=== PATIENT | female | born 1980 | race Caucasian/White ===

== ENCOUNTER 2016-10-19 11:27 | Inpatient (IN) | payer BC, OTHER ==
[~2016-10-19] VITALS: Ht 170.2 cm; Wt 63.0 kg
[2016-10-19 13:00] VITALS: BP 117/92
--- NOTE | 2016-10-19 13:00 | NUR ---
Pre-admission note; Patient is AOX4, appears to be anxious with flushed face. Admitting vital signs are as follows; BP 117/92, HR 110, Temperature 98.3, respirations 18, Spo2 96%, denies any pain. Educated patient regarding unit protocols, verbalized understanding. Will further evaluate patient on 3rd floor [facility] unit.
[2016-10-19] MEDS ORDERED: CETI-102 PO (13:14)
[2016-10-19 13:26] LABS: *URINE HCG, QUAL NEGATIVE (NEGATIVE)
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
[2016-10-19 13:44] LABS: *AMPHETAMINE, URINE NEGATIVE (NEGATIVE); *BARBITURATE, URINE NEGATIVE (NEGATIVE); *CANNABINOID, URINE NEGATIVE (NEGATIVE); *COCCAINE, URINE NEGATIVE (NEGATIVE); *OPIATE, URINE NEGATIVE (NEGATIVE); *PHENCYCLIDINE SCREEN,URINE NEGATIVE (NEGATIVE)
[2016-10-19] MEDS ORDERED: ESCI10TA PO (15:07)
[2016-10-19] MEDS ORDERED: LOPERAMIDE HCL 2 MG CAPSULE PO PRN ×2 (15:30)
[2016-10-19] MEDS ORDERED: MIRALAX 17 GM POWD.PACK PO PRN (15:30)
[2016-10-19] MEDS ORDERED: LORAZEPAM 2 MG/1 ML VIAL IM PRN (15:30)
[2016-10-19] MEDS ORDERED: THIAMINE HCL 200 MG/2 ML VIAL IM ONE (15:30)
[2016-10-19] MEDS ORDERED: DICYCLOMINE HCL 20 MG TABLET PO PRN (15:30)
[2016-10-19] MEDS ORDERED: MAGNESIUM HYDROXIDE 30 ML LIQUID UDC PO PRN (15:30)
[2016-10-19] MEDS ORDERED: MAG HYDROX/AL HYDROX/SIMETH 30 ML LIQUID UDC PO PRN (15:30)
[2016-10-19] MEDS ORDERED: LORAZEPAM 1 MG TABLET PO PRN ×2 (15:30)
[2016-10-19] MEDS: ONDANSETRON ODT 4 MG TAB.RAPDIS SL PRN (16:16)
--- NOTE | 2016-10-19 16:16 | NUR ---
PRN Zofran 4mg SL Client reports nausea, no episodes of emesis. Zofran 4mg SL administered. Saltine crackers and livia karan given to client, will continue to monitor. Call light within reach.
[2016-10-19] MEDS: LORAZEPAM 1 MG TABLET PO SCH ×2 (16:17→20:23)
[2016-10-19 16:26] VITALS: BP 134/71
--- NOTE | 2016-10-19 17:16 | NUR ---
Re-assessment; Patient denies further nausea noted. PRN medication is effective.
--- NOTE | 2016-10-19 18:22 | NUR ---
End of shift note; Patient is AOX4. Patient was seen and evaluated by MD. MD ordered 5 day Ativan taper to start with 2 doses of Ativan at 1700 and 2100. Order medication was given to prevent withdrawal induced seizures and for CIWA score of 11. Patient was compliant with treatment plan and medication regime. Medications were effective in reducing withdrawal symptoms. Patient is on fall and seizure precautions. Bed in lwoest position, call light within reach. Met all needs.
--- NOTE | 2016-10-19 19:15 | NUR ---
Start of Shift Patient Received. Patient is in bed awake, alert and verbally responsive. Breathing even and non labored. No signs of pain or discomfort noted. Patient is a 35 year old female admitted 10/19/16 for ETOH and Benzo Dependence, under the care of Dr. De Jesus. Patient is currently receiving a 5 day Ativan taper. Patient verbalizes allergies to strawberries, wishes to be full code, following a regular diet, skin intact, placed on fall and seizure precautions. Patient verbalized past medical history of Thyroidectomy, breast augmentation, , Anxiety, and Depression, and history of seizures with last one noted in Feb 2016. Patient was given first dose of Ativan at 1700 and last CIWA noted at 1600 noted to be 11. All needs attended to promptly. Will continue plan of care as ordered.
[2016-10-19 20:19] VITALS: BP 127/79
[2016-10-19] MEDS: ESCITALOPRAM OXALATE 10 MG TABLET PO SCH (20:23)
[2016-10-19] MEDS: ONDANSETRON 4 MG/2 ML VIAL IM PRN (20:24)
--- NOTE | 2016-10-19 20:30 | NUR ---
PRN Medication Administration Patient verbalizing increased nausea. Patient verbalized "I know they gave me Zofran earlier but it continues." PRN Zofran IM administered with routine medications. Will continue to monitor for effectiveness of medication.
--- NOTE | 2016-10-19 21:40 | NUR ---
PRN Medication Reassessment Patient able to verbalize "the medication really helped." PRN Zofran IM noted to be effective. Will continue to monitor.
[2016-10-19 21:51] LABS: ALANINE AMINOTRANSFERASE 27 U/L (14-59); ALBUMIN 3.9 g/dL (3.4-5.0); ALKALINE PHOSPHATASE 68 U/L (50-136); AMYLASE 89 U/L (25-115); ASPARTATE AMINOTRANSFERASE 31 U/L (15-37); BILIRUBIN,TOTAL 1.9 mg/dL (0.2-1.0); CALCIUM 9.2 mg/dL (8.5-10.1); CHLORIDE 96 mmol/L (98-107); GFR 64 mL/min (>60); GLUCOSE 111 mg/dL (74-106); LIPASE 231 U/L (73-393); MAGNESIUM 1.9 mg/dL (1.8-2.4); SODIUM SERUM 137 mmol/L (136-145); TOTAL PROTEIN, SERUM 7.3 g/dL (6.4-8.2); UREA NITROGEN, BLOOD 21 mg/dL (7-18)
[2016-10-19 21:52] LABS: CARBON DIOXIDE 34 mmol/L (21-32)
[2016-10-19 21:57] LABS: BASOPHILS % (AUTO) 0.1 % (0.0-2.0); EOSINOPHILS # (AUTO) 0.1 K/uL (0.0-0.7); EOSINOPHILS % (AUTO) 1.1 % (0.0-7.0); HEMATOCRIT 45.4 % (31.2-41.9); HEMOGLOBIN 15.9 g/dL (10.9-14.3); LYMPHOCYTES # (AUTO) 3.7 K/uL (20.0-40.0); MEAN CORPUSCULAR HEMOGLOBIN 32.2 uug (24.7-32.8); MEAN CORPUSCULAR HGB CONC 35 g/dL (32.3-35.6); MEAN CORPUSCULAR VOLUME 91.6 fL (75.5-95.3); MONOCYTES # (AUTO) 0.6 K/uL (2.0-10.0); MONOCYTES % (AUTO) 5.7 % (0.0-11.0); NEUTROPHILS # (AUTO) 5.8 K/uL (1.8-8.9); NEUTROPHILS % (AUTO) 57.1 % (38.5-71.5); PLATELET COUNT (AUTO) 156 K/uL (179-408); RED BLOOD CELL COUNT(AUTO) 4.95 MIL/uL (3.63-4.92); WHITE BLOOD COUNT (AUTO) 10.3 K/uL (3.8-11.8)
[2016-10-19 22:00] LABS: THYROID STIMULATING HORMONE 4.784 mIU/mL (0.358-3.740)
[2016-10-19 22:07] LABS: HIV-1 p24 ANTIGEN NON REACTIVE (NONREACTIVE); HIV-1/2 ANTIBODY NON REACTIVE (NONREACTIVE)
[2016-10-19 22:13] LABS: ETHANOL < 3 MG/DL (0-0)
[2016-10-19] MEDS ORDERED: POTASSIUM CHLORIDE 20 MEQ TAB.PRT.SR PO ONE (22:15)
[2016-10-19 22:23] VITALS: BP 103/89
[2016-10-19] MEDS ORDERED: POTASSIUM CHLORIDE 20 MEQ TAB.PRT.SR ONE (22:27)
[2016-10-20 00:05] VITALS: BP 114/76
[2016-10-20 04:25] VITALS: BP 115/86
[2016-10-20] MEDS: ONDANSETRON ODT 4 MG TAB.RAPDIS SL PRN ×2 (04:30→08:32)
--- NOTE | 2016-10-20 04:35 | NUR ---
PRN medication Administration Patient noted awake for vitals and verbalizing increased nausea. PRN Zofran administered. Patient able to tolerate well. Will continue to monitor accordingly.
--- NOTE | 2016-10-20 07:00 | NUR ---
End of Shift Patient is in bed sleeping. Breathing even and non labored. No signs of pain or discomfort noted. Patient is a 35 year old female admitted 10/19/16 for ETOH and Benzo Dependence, under the care of Dr. De Jesus. Patient is currently receiving a 5 day Ativan taper. Patient verbalizes allergies to strawberries; wishes to be full code, following a regular diet, skin intact, placed on fall and seizure precautions. Patient verbalized past medical history of Thyroidectomy, breast augmentation, , Anxiety, and Depression, and history of seizures with last one noted in feb 2016. Patient was given PRN Zofran IM as well as PRN Zofran sublingual. Both medications administrations noted to be effective. All needs attended to promptly. Will continue plan of care as ordered.
--- NOTE | 2016-10-20 07:46 | NUR ---
Start of shift note; Received report from night nurse. Patient is AOX4. Patient is a 35 y/o female admitted on 10/19/16 for ETOH/Benzo dependence. Patient was placed on 5 day Ativan taper, no adverse reactions noted. Patient is on fall and seizure precaution. Bed in lowest position, call light within reach. Patient reported history of thyroidectomy, breast augmentation, seizures, anxiety and depression. Patient is on full code status, on vegetarian diet, allergic to strawberry and has seasonal allergies. Patient slept for 8 hours last night. Patient had EKG done last night, results to be relayed to MD today, Will continue to monitor patient.
[2016-10-20 07:54] LABS: BASOPHILS % (AUTO) 0.2 % (0.0-2.0); EOSINOPHILS # (AUTO) 0.1 K/uL (0.0-0.7); EOSINOPHILS % (AUTO) 2.4 % (0.0-7.0); HEMATOCRIT 45.1 % (31.2-41.9); LYMPHOCYTES # (AUTO) 2.3 K/uL (20.0-40.0); LYMPHOCYTES % (AUTO) 41.1 % (20.5-51.5); MEAN CORPUSCULAR HEMOGLOBIN 32.5 uug (24.7-32.8); MEAN CORPUSCULAR HGB CONC 36 g/dL (32.3-35.6); MEAN CORPUSCULAR VOLUME 91.7 fL (75.5-95.3); MONOCYTES # (AUTO) 0.4 K/uL (2.0-10.0); MONOCYTES % (AUTO) 6.5 % (0.0-11.0); NEUTROPHILS # (AUTO) 2.7 K/uL (1.8-8.9); NEUTROPHILS % (AUTO) 49.8 % (38.5-71.5); PLATELET COUNT (AUTO) 136 K/uL (179-408); RED BLOOD CELL COUNT(AUTO) 4.93 MIL/uL (3.63-4.92); RED CELL DISTRIBUTION WIDTH 12.8 % (12.3-17.7); WHITE BLOOD COUNT (AUTO) 5.5 K/uL (3.8-11.8)
[2016-10-20 08:00] VITALS: BP 110/68
[2016-10-20 08:08] LABS: ALBUMIN 3.7 g/dL (3.4-5.0); BILIRUBIN,DIRECT 0.3 mg/dL (0.0-0.2); BILIRUBIN,TOTAL 2.7 mg/dL (0.2-1.0); CALCIUM 8.9 mg/dL (8.5-10.1); CREATININE 0.9 mg/dL (0.6-1.3); PHOSPHOROUS 3.6 mg/dL (2.5-4.9); POTASSIUM 3.3 mmol/L (3.5-5.1)
[2016-10-20] MEDS: LORAZEPAM 1 MG TABLET PO SCH ×4 (08:31→20:03)
[2016-10-20] MEDS: MULTIVITAMINS,THERAPEUTIC TABLET PO SCH (08:32)
[2016-10-20] MEDS: THIAMINE HCL 100 MG TABLET PO SCH (08:32)
[2016-10-20] MEDS: FOLIC ACID 1 MG TABLET PO SCH (08:32)
--- NOTE | 2016-10-20 08:32 | NUR ---
PRN medication; Patient is complaining of nausea, no emesis noted. Zofran 4mg Odt given for nausea. Will continue to monitor for effectiveness of medication.
[2016-10-20] MEDS ORDERED: PATIENT MAY USE OWN MED- MD OK PO SCH (09:00)
[2016-10-20] MEDS ORDERED: TUBERCULIN,PURIF.PROT.DERIV. 5 TU/0.1 ML TEST ID ONE (09:00)
--- NOTE | 2016-10-20 09:32 | NUR ---
Re-assessment; Patient denies nausea at this time. PRN Zofran is effective.
[2016-10-20] MEDS ORDERED: POTASSIUM CHLORIDE 20 MEQ TAB.PRT.SR PO ONE (10:00)
--- NOTE | 2016-10-20 10:00 | NUR ---
New Order; reviewed patient's new LAB results, MD ordered K-DUR 40meq PO one time order. Medication given to patient as ordered. MD also notified of patient's EKG results, no other orders noted. will continue to monitor patient.
[2016-10-20 12:00] VITALS: BP 110/73
[2016-10-20] MEDS: ONDANSETRON 4 MG/2 ML VIAL IM PRN (12:06)
--- NOTE | 2016-10-20 12:06 | NUR ---
PRN medication; Patient is complaining of nausea, no emesis noted. Zofran 4mg/2ml injection given for nausea. Will continue to monitor for effectiveness of medication.
[2016-10-20] MEDS ORDERED: PANTOPRAZOLE SODIUM 40 MG TABLET.DR PO ONE (12:15)
--- NOTE | 2016-10-20 13:06 | NUR ---
Re-assessment; Patient denies nausea at this time. PRN Zofran injection is effective.
[2016-10-20 16:00] VITALS: BP 115/75
[2016-10-20] MEDS: ACETAMINOPHEN 325 MG TABLET PO PRN (16:58)
--- NOTE | 2016-10-20 16:58 | NUR ---
PRN medication; Patient is complaining of pain/headache rated 6/10. PRN Tylenol 650mg given for pain. Will continue to monitor patient.
--- NOTE | 2016-10-20 17:58 | NUR ---
Re-assessment; Patient denies pain at this time. PRN medication is effective.
--- NOTE | 2016-10-20 18:14 | NUR ---
End of shift note; Patient is AOX4. Patient was placed on 5 day Ativan taper started today no adverse reactions noted. Patient was compliant with treatment plan and medication regime. Medications were effective in reducing withdrawal symptoms. Patient is on fall and seizure precautions. Bed in lowest position, call light within reach. Met all needs.
--- NOTE | 2016-10-20 19:20 | NUR ---
Start of Shift Patient Received. Patient is in activities room participating in group meeting. Patient is a 35 year old female admitted 10/19/16 for ETOH and Benzo Dependence, under the care of Dr. De Jesus. Patient is currently receiving a 5 day Ativan taper. Patient verbalizes allergies to strawberries, wishes to be full code, following a regular diet, skin intact, placed on fall and seizure precautions. Patient verbalized past medical history of Thyroidectomy, breast augmentation, , Anxiety, and Depression, and history of seizures with last one noted in Feb 2016. Per endorsement, patient was given PRN Zofran sublingual, Zofran IM, and Tylenol. Labs rendered, resulted, and potassium was supplemented. New order for Protonix 40mg daily at 0700. At 1700 and last CIWA noted was 7. All needs attended to promptly. Will continue plan of care as ordered.
[2016-10-20 20:00] VITALS: BP 133/77
[2016-10-20] MEDS: ESCITALOPRAM OXALATE 10 MG TABLET PO SCH (20:03)
--- NOTE | 2016-10-20 21:30 | NUR ---
MD Communication/ PRN Medication Administration Patient verbalizing inability of falling asleep with MD aware. New order for Benadryl 50mg. PRN Benadryl administered. Will continue to monitor.
[2016-10-20] MEDS: diphenhydrAMINE 50 MG CAPSULE PO PRN (21:35)
[2016-10-20] MEDS ORDERED: diphenhydrAMINE 50 MG CAPSULE ONE (21:44)
[2016-10-20] MEDS: IBUPROFEN 400 MG TABLET PO PRN (22:38)
--- NOTE | 2016-10-20 22:38 | NUR ---
PRN Medication Administration Patient noted at the nurses station verbalizing pain due to a head ache 10/30. PRN Motrin administered. Patient able to verbalize "I was falling asleep but then my head was just bothering me. I should be able to fall asleep now." Will continue to monitor.
[2016-10-21] VITALS (7 sets, daily range): BP systolic 95–130; BP diastolic 58–88
[2016-10-21] MEDS: PANTOPRAZOLE SODIUM 40 MG TABLET.DR PO SCH (06:44)
--- NOTE | 2016-10-21 07:05 | NUR ---
End of Shift Patient is in bed sleeping. Breathing even and non labored. No signs of pain or discomfort noted. Patient is a 35 year old female admitted 10/19/16 for ETOH and Benzo Dependence, under the care of Dr. De Jesus. Patient is currently receiving a 5 day Ativan taper. Patient verbalizes allergies to strawberries; full code, regular diet, skin intact, placed on fall and seizure precautions. Patient verbalized past medical history of Thyroidectomy, breast augmentation, , Anxiety, and Depression, and history of seizures with last one noted in feb 2016. Patient was given PRN Benadryl and Motrin with both noted to be effective. Patient slept a total of 6 hours. All needs attended to promptly. Will endorse to continue plan of care as ordered.
--- NOTE | 2016-10-21 07:43 | NUR ---
BEGINNING OF SHIFT Patient endorsement report received from warehouse shift supervisor nurse, all pertinent information discussed. Patient with admitting Dx: ETOH Dependence Patient continues on ativan taper as ordered and is to begin day 3 of . Patient slept for 6 hours, with last ciwa score of: 0 Patient received PRN: benadryl and motrin as per warehouse shift supervisor, medications were effective. Fall and seizure precautions observed at all times. Patient received awake, alert and oriented x4, educated regarding plan of care for the day with good verbal understanding. will continue to monitor closely. safety measures in place. call light with in reach.
[2016-10-21 08:05] LABS: THYROID STIMULATING HORMONE 1.87 mIU/mL (0.358-3.740)
[2016-10-21 08:06] LABS: BASOPHILS % (AUTO) 0.2 % (0.0-2.0); EOSINOPHILS # (AUTO) 0.4 K/uL (0.0-0.7); EOSINOPHILS % (AUTO) 4.2 % (0.0-7.0); HEMATOCRIT 44.2 % (31.2-41.9); HEMOGLOBIN 15.3 g/dL (10.9-14.3); LYMPHOCYTES % (AUTO) 22.7 % (20.5-51.5); MEAN CORPUSCULAR HEMOGLOBIN 32.1 uug (24.7-32.8); MEAN CORPUSCULAR HGB CONC 35 g/dL (32.3-35.6); MEAN CORPUSCULAR VOLUME 92.8 fL (75.5-95.3); MONOCYTES # (AUTO) 0.3 K/uL (2.0-10.0); NEUTROPHILS # (AUTO) 6.2 K/uL (1.8-8.9); NEUTROPHILS % (AUTO) 69.9 % (38.5-71.5); PLATELET COUNT (AUTO) 132 K/uL (179-408); RED BLOOD CELL COUNT(AUTO) 4.76 MIL/uL (3.63-4.92); RED CELL DISTRIBUTION WIDTH 12.8 % (12.3-17.7); WHITE BLOOD COUNT (AUTO) 8.9 K/uL (3.8-11.8)
[2016-10-21 08:48] LABS: ALBUMIN 3.5 g/dL (3.4-5.0); BILIRUBIN,DIRECT 0.2 mg/dL (0.0-0.2); BILIRUBIN,TOTAL 1.1 mg/dL (0.2-1.0); CREATININE 0.8 mg/dL (0.6-1.3); MAGNESIUM 1.9 mg/dL (1.8-2.4); PHOSPHOROUS 4.6 mg/dL (2.5-4.9); POTASSIUM 3.6 mmol/L (3.5-5.1); TOTAL PROTEIN, SERUM 6.8 g/dL (6.4-8.2)
[2016-10-21] MEDS: LORAZEPAM 1 MG TABLET PO SCH ×3 (09:09→21:05)
[2016-10-21] MEDS: CETIRIZINE HCL 10 MG TABLET PO SCH (09:09)
[2016-10-21] MEDS: THIAMINE HCL 100 MG TABLET PO SCH (09:09)
[2016-10-21] MEDS: MULTIVITAMINS,THERAPEUTIC TABLET PO SCH (09:09)
[2016-10-21] MEDS: FOLIC ACID 1 MG TABLET PO SCH (09:09)
[2016-10-21] MEDS: ONDANSETRON ODT 4 MG TAB.RAPDIS SL PRN ×2 (09:12→16:26)
[2016-10-21] MEDS: IBUPROFEN 400 MG TABLET PO PRN ×3 (09:12→21:04)
--- NOTE | 2016-10-21 09:12 | NUR ---
PRN MOTRIN/ZOFRAN Patient reports menstrual cramps 6/10 and c/o nausea. Patient administered Motrin as ordered and Zofran as ordered, will monitor effectiveness of medication.
[2016-10-21 10:02] LABS: FOLIC ACID 9.9 NG/ML (8.6-58.9)
--- NOTE | 2016-10-21 10:12 | NUR ---
MOTRIN/ZOFRAN REASSESSMENT Patient reports medication with relief, current pain level 0/10. no c/o nausea, medication effective, will continue to monitor closely. safety measures in place.
--- NOTE | 2016-10-21 10:42 | NUR ---
MD COMMUNICATION Patient was administered Zofran at 0912, patient reported was effective one hour post administration. at 1100 patient reported she began to feel nauseous again and vomited x1, notified Dr. arana with new orders for one time order for Phenergan injection as ordered, for NV will administer as ordered.
[2016-10-21] MEDS ORDERED: PROMETHAZINE HCL 25 MG/1 ML VIAL IM ONE (11:00)
--- NOTE | 2016-10-21 11:08 | NUR ---
PHENERGAN INJECTION PRN Patient administered one time dose of Phenergan as ordered for NV. injection well tolerated, will monitor effectiveness of medication.
--- NOTE | 2016-10-21 12:08 | NUR ---
PHENERGAN REASSESSMENT Patient reports medication with relief, no episodes of NV will continue ot monitor.
--- NOTE | 2016-10-21 16:26 | NUR ---
PRN MOTRIN/ZOFRAN Patient reports menstrual cramps 6/10 and c/o nausea. Patient administered Motrin as ordered and Zofran as ordered, will monitor effectiveness of medication.
--- NOTE | 2016-10-21 17:26 | NUR ---
MOTRIN/ZOFRAN REASSESSMENT Patient reports medication with relief, current pain level 0/10. no c/o nausea, medication effective, will continue to monitor closely. safety measures in place.
--- NOTE | 2016-10-21 18:58 | NUR ---
END OF SHIFT Patient with admitting Dx: ETOH Dependance and continues on 5 day Ativan taper as ordered, well tolerated, no ASE noted, Patient encouraged adequate PO fluid intake as tolerated. 0900 patient presented with Nausea, fine tremors, sweats, anxiety and mild agitation with ciwa score of: 12. 1300 assessment patient presented with: fine tremors, sweats, anxiety, mild agitation with ciwa score of: 12. . 1700 assessment patient presented with:nausea, barely sweating, fine tremors, and anxiety with ciwa score of: 11. Detox medication effective at reducing withdrawal symptoms. Patient encouraged to attend group therapies/sessions to learn new coping skills to prevent relapse, noted attending and participating. patient denies SI/HI. Administered PRN: Motrin and Zofran at 0912 and a second dose at 1626 as ordered and Phenergan at at 1108, medications were effective. Safety measures in place. call light kept with in reach. Patient endorsed to operation shift supervisor nurse, all pertinent information discussed.
--- NOTE | 2016-10-21 20:40 | NUR ---
START OF SHIFT NOTE Pt is a 35 y/o female admitted for ETOH and Xanax dependence and use. Pt has an allergy to strawberries and also reported having seasonal allergies. Pt has a PMH of thyroidectomy, breast augmentation, , anxiety, and depression. Per day shift nurse pt was placed on 5 day Ativan taper(day 3) and is tolerating medication well with no s/e or a/r reported. Pt received Zofran 4mg ODT PRN x 2, Motrin 400 mg PO PRN x 2, and Phenergan IM x1 during the day shift. Last CIWA: 11 (1600). At this time pt has just returned to her room from showering. Pt stated " I'm doing good. I'm on my menstrual so I'm having some cramps. Can I have some Motrin with my meds?" Pt is encouraged to notify staff of any changes in condition or of any concerns. Pt verbalized an understanding. All safety measures in place. Will continue to monitor.
[2016-10-21] MEDS: ESCITALOPRAM OXALATE 10 MG TABLET PO SCH (21:04)
[2016-10-21] MEDS: diphenhydrAMINE 50 MG CAPSULE PO PRN (21:10)
--- NOTE | 2016-10-21 21:10 | NUR ---
BENADRYL AND MOTRIN REASSESSMENT Pt stated " Can I have some Motrin for my cramps and some Benadryl to help me sleep? My cramps are like a 3/10 or less. Right now it's just pressure. That shower I took really helped." Motrin 400 mg PO PRN and Benadryl 50 mg PO PRN was given. Pt was encouraged to notify staff of any changes in condition or of any further concerns. Pt verbalized an understanding. All safety measures in place. Will monitor for effectiveness.
--- NOTE | 2016-10-21 23:02 | NUR ---
BENADRYL AND MOTRIN PRN REASSESSMENT Pt approached the nurse's station and stated " My cramps are gone. The Motrin worked. I'm super sleepy. I'm just gonna grab some water and head to bed." Benadryl and Motrin PRNS effective. Pt was encouraged to notify staff of any changes in condition or of any concerns. Pt verbalized an understanding. Will continue to monitor.
[2016-10-22] VITALS: BP 132/93
[2016-10-22] MEDS: HYDROXYZINE PAMOATE 25 MG CAPSULE PO PRN (00:56)
--- NOTE | 2016-10-22 00:56 | NUR ---
VISTARIL PRN ADMINISTRATION Pt stated " I'm feeling anxious. I just can't relax. " Vistaril 25 mg PO PRN was given. Pt was encouraged to notify staff of any changes in condition or of any further concerns. Pt verbalized an understanding. All safety measures in place. Will monitor for effectiveness.
--- NOTE | 2016-10-22 01:56 | NUR ---
VISTARIL PRN REASSESSMENT Pt stated " I feel more relaxed." PRN effective. All safety measures in place. Will continue to monitor.
--- NOTE | 2016-10-22 04:00 | NUR ---
CIWA AND VITALS REFUSED Pt refused to be assessed and have vitals taken at this time. Pt was encouraged x 3 with risks and benefits explained, but the pt still refused. All safety measures in place. Will continue to monitor. Addendum: 10/22/16 at 0656 by PATRICIA DISLA LVN Amended: Links added.
[2016-10-22 04:06] LABS: HCV AB <0.1 s/co ratio (0.0-0.9); HEPATITIS B CORE AB, IgM Negative (Negative); HEPATITIS B SURFACE AG Negative (Negative)
--- NOTE | 2016-10-22 06:59 | NUR ---
END OF SHIFT NOTE Pt is a 35 y/o female admitted for ETOH and Xanax dependence and use. Pt has an allergy to strawberries and also reported having seasonal allergies. Pt has a PMH of thyroidectomy, breast augmentation, , anxiety, and depression. Pt continues on a 5 day Ativan taper(day 4) and is tolerating medication well with no s/e or a/r reported. Pt received Motrin 400 mg PO PRN, Benadryl 50 mg PO PRN, and Vistaril 50 mg PO PRN during the shift. Last CIWA:3 (0000). Pt slept for a total of 5 hours. All safety measures in place. Endorsed to the oncoming nurse.
[2016-10-22 07:19] LABS: BASOPHILS % (AUTO) 0.1 % (0.0-2.0); EOSINOPHILS # (AUTO) 0.5 K/uL (0.0-0.7); EOSINOPHILS % (AUTO) 4.1 % (0.0-7.0); HEMATOCRIT 41.5 % (31.2-41.9); HEMOGLOBIN 14.7 g/dL (10.9-14.3); LYMPHOCYTES # (AUTO) 2.5 K/uL (20.0-40.0); LYMPHOCYTES % (AUTO) 19.7 % (20.5-51.5); MEAN CORPUSCULAR HGB CONC 35 g/dL (32.3-35.6); MEAN CORPUSCULAR VOLUME 93.6 fL (75.5-95.3); MONOCYTES # (AUTO) 0.5 K/uL (2.0-10.0); MONOCYTES % (AUTO) 4.1 % (0.0-11.0); NEUTROPHILS # (AUTO) 8.9 K/uL (1.8-8.9); PLATELET COUNT (AUTO) 126 K/uL (179-408); RED BLOOD CELL COUNT(AUTO) 4.44 MIL/uL (3.63-4.92); RED CELL DISTRIBUTION WIDTH 12.8 % (12.3-17.7); WHITE BLOOD COUNT (AUTO) 12.4 K/uL (3.8-11.8)
[2016-10-22 07:41] LABS: CALCIUM 9.2 mg/dL (8.5-10.1); CREATININE 0.7 mg/dL (0.6-1.3); POTASSIUM 4.1 mmol/L (3.5-5.1)
[2016-10-22] MEDS: PANTOPRAZOLE SODIUM 40 MG TABLET.DR PO SCH (07:46)
--- NOTE | 2016-10-22 08:06 | NUR ---
BEGINNING OF SHIFT Patient endorsement report received from shift superintendent nurse, all pertinent information discussed. Patient with admitting Dx: ETOH Dependence Patient continues on Ativan taper as ordered and is to begin day 4 of . Patient slept for 5 hours, with last ciwa score of: 3 Patient received PRN: Vistaril, Benadryl and Motrin as per shift superintendent, medications were effective. Fall and seizure precautions observed at all times. Patient received awake, alert and oriented x4, educated regarding plan of care for the day with good verbal understanding. will continue to monitor closely. safety measures in place. call light with in reach.
[2016-10-22 08:40] VITALS: BP 111/68
[2016-10-22] MEDS: FOLIC ACID 1 MG TABLET PO SCH (08:41)
[2016-10-22] MEDS: CETIRIZINE HCL 10 MG TABLET PO SCH (08:41)
[2016-10-22] MEDS: MULTIVITAMINS,THERAPEUTIC TABLET PO SCH (08:41)
[2016-10-22] MEDS: THIAMINE HCL 100 MG TABLET PO SCH (08:41)
[2016-10-22] MEDS: LORAZEPAM 1 MG TABLET PO SCH ×4 (08:41→21:39)
[2016-10-22 12:15] VITALS: BP 129/86
[2016-10-22 17:00] VITALS: BP 138/97
[2016-10-22] MEDS ORDERED: GABAPENTIN 300 MG CAPSULE PO ONE (17:00)
--- NOTE | 2016-10-22 19:05 | NUR ---
END OF SHIFT Patient with admitting Dx: ETOH Dependance and continues on 5 day Ativan taper as ordered, well tolerated, no ASE noted, Patient encouraged adequate PO fluid intake as tolerated. 0900 patient presented with tremors that can be felt and anxiety with ciwa score of: 3.1300 assessment patient presented with mild anxiety and tremors that can be felt. 1700 assessment patient presented with: tremors that can be felt and anxiety with ciwa score of: 3; . Detox medication effective at reducing withdrawal symptoms. Patient encouraged to attend group therapies/sessions to learn new coping skills to prevent relapse, noted attending and participating. patient denies SI/HI. Administered no PRNs during shift. Safety measures in place. call light kept with in reach. Patient endorsed to shift nurse manager nurse, all pertinent information discussed.
[2016-10-22 20:00] VITALS: BP 135/94
--- NOTE | 2016-10-22 20:00 | NUR ---
START OF SHIFT NOTE Pt is a 35 y/o female admitted for ETOH and Xanax dependence and use. Pt has an allergy to strawberries and also reported having seasonal allergies. Pt has a PMH of thyroidectomy, breast augmentation, , anxiety, and depression. Per day shift nurse pt continues on a 5 day Ativan taper(day 4) and is tolerating medication well with no s/e or a/r reported. Pt didn't receive any PRNS during the day shift. Last CIWA: 2 (1600). At this time pt is standing by the nurse's station. Pt stated " I'm doing okay, it's just been an emotional day for me." Pt denies any pain/discomfort at this time. Pt is encouraged to notify staff of any changes in condition or of any concerns. Pt verbalized an understanding. Will continue to monitor.
[2016-10-22] MEDS: CLONIDINE HCL 0.1 MG TABLET PO SCH (21:38)
[2016-10-22] MEDS: GABAPENTIN 300 MG CAPSULE PO SCH (21:40)
[2016-10-22] MEDS: ESCITALOPRAM OXALATE 10 MG TABLET PO SCH (21:40)
[2016-10-23] VITALS: BP 138/89
[2016-10-23] MEDS: diphenhydrAMINE 50 MG CAPSULE PO PRN (01:10)
--- NOTE | 2016-10-23 01:12 | NUR ---
BENADRYL PRN ADMINISTRATION Pt stated " Can I have some Benadryl to help me sleep?" Benadryl 50 mg PO PRN was given. Pt was encouraged to notify staff of any changes in condition or of any further concerns. Pt verbalized an understanding. All safety measures in place. Will monitor for effectiveness.
--- NOTE | 2016-10-23 02:12 | NUR ---
AGUEDA PRN REASSESSMENT Pt stated "I'm actually just starting to doze off. I think its working." PRN effective. All safety measures in place. Will continue to monitor.
--- NOTE | 2016-10-23 04:00 | NUR ---
CIWA AND VITALS REFUSED Pt refused to be assessed and have vitals taken at this time. Pt was encouraged x 3 with risks and benefits explained, but the pt still declined. All safety measures in place. Will continue to monitor. Addendum: 10/23/16 at 0440 by PATRICIA DISLA LVN Amended: Links added.
--- NOTE | 2016-10-23 07:02 | NUR ---
END OF SHIFT NOTE Pt is a 35 y/o female admitted for ETOH and Xanax dependence and use. Pt has an allergy to strawberries and also reported having seasonal allergies. Pt has a PMH of thyroidectomy, breast augmentation, , anxiety, and depression. Pt continues on a 5 day Ativan taper(day 4) and is tolerating medication well with no s/e or a/r reported. Pt received Benadryl 50 mg PO PRN during the shift. Last CIWA:2 (0000). Pt slept for a total of 5 hours. All safety measures in place. Endorsed to the oncoming nurse.
[2016-10-23] MEDS: PANTOPRAZOLE SODIUM 40 MG TABLET.DR PO SCH (07:15)
[2016-10-23 07:50] LABS: BASOPHILS % (AUTO) 0.5 % (0.0-2.0); EOSINOPHILS # (AUTO) 0.4 K/uL (0.0-0.7); EOSINOPHILS % (AUTO) 4.9 % (0.0-7.0); HEMATOCRIT 41.9 % (31.2-41.9); HEMOGLOBIN 14.4 g/dL (10.9-14.3); LYMPHOCYTES # (AUTO) 2.5 K/uL (20.0-40.0); LYMPHOCYTES % (AUTO) 32.3 % (20.5-51.5); MEAN CORPUSCULAR HEMOGLOBIN 32.2 uug (24.7-32.8); MEAN CORPUSCULAR HGB CONC 34 g/dL (32.3-35.6); MEAN CORPUSCULAR VOLUME 93.5 fL (75.5-95.3); MONOCYTES # (AUTO) 0.4 K/uL (2.0-10.0); MONOCYTES % (AUTO) 5.7 % (0.0-11.0); NEUTROPHILS # (AUTO) 4.3 K/uL (1.8-8.9); NEUTROPHILS % (AUTO) 56.6 % (38.5-71.5); PLATELET COUNT (AUTO) 133 K/uL (179-408); RED BLOOD CELL COUNT(AUTO) 4.48 MIL/uL (3.63-4.92); RED CELL DISTRIBUTION WIDTH 12.9 % (12.3-17.7); WHITE BLOOD COUNT (AUTO) 7.6 K/uL (3.8-11.8)
[2016-10-23 08:00] VITALS: BP 125/76
[2016-10-23] MEDS: GABAPENTIN 300 MG CAPSULE PO SCH ×3 (08:27→20:03)
[2016-10-23] MEDS: CHOLECALCIFEROL 1,000 UNIT TABLET PO SCH (08:27)
[2016-10-23] MEDS: LORAZEPAM 1 MG TABLET PO SCH ×3 (08:27→20:04)
[2016-10-23] MEDS: CETIRIZINE HCL 10 MG TABLET PO SCH (08:27)
[2016-10-23] MEDS: FOLIC ACID 1 MG TABLET PO SCH (08:27)
[2016-10-23] MEDS: THIAMINE HCL 100 MG TABLET PO SCH (08:27)
[2016-10-23] MEDS: CLONIDINE HCL 0.1 MG TABLET PO PRN (08:27)
[2016-10-23] MEDS: MULTIVITAMINS,THERAPEUTIC TABLET PO SCH (08:27)
--- NOTE | 2016-10-23 08:27 | NUR ---
PRN medication; Patient appears agitated and anxious complaining of chills of diaphoresis, PRN Clonidine 0.1mg PO given as per ordered. Patient's current BP is 125/76 with HR of 110. Redirected patient as needed. Will continue to monitor patient.
--- NOTE | 2016-10-23 09:27 | NUR ---
Re-assessment; Patient appears calm and comfortable. Patient's current BP is 110/72 and HR of 96. PRN medication is effective.
--- NOTE | 2016-10-23 09:39 | NUR ---
Start of shift note; Received report from night nurse. Patient is AOX4. Patient is a 35 y/o female admitted on 10/19/16 for ETOH/Benzo dependence. Patient was placed on 5 day Ativan taper, no adverse reactions noted. Patient is on fall and seizure precaution. Bed in lowest position, call light within reach. Patient reported history of thyroidectomy, breast augmentation, seizures, anxiety and depression. Patient is on full code status, on vegetarian diet, allergic to strawberry and has seasonal allergies. Patient appears anxious and agitated at this time. Will continue to monitor patient.
[2016-10-23 10:40] LABS: ALBUMIN 3.7 g/dL (3.4-5.0); BILIRUBIN,DIRECT 0.2 mg/dL (0.0-0.2); BILIRUBIN,TOTAL 0.8 mg/dL (0.2-1.0); CALCIUM 9.2 mg/dL (8.5-10.1); CREATININE 0.7 mg/dL (0.6-1.3); MAGNESIUM 1.9 mg/dL (1.8-2.4); POTASSIUM 3.7 mmol/L (3.5-5.1); TOTAL PROTEIN, SERUM 7.1 g/dL (6.4-8.2)
[2016-10-23] MEDS: HYDROXYZINE PAMOATE 25 MG CAPSULE PO PRN (11:36)
--- NOTE | 2016-10-23 11:39 | NUR ---
PRN medication; Patient attended group therapy, during group therapy and discussion, past experiences triggered patient's anxiety. Patient is crying, very anxious, redirected as needed. Non-pharmacological relaxation techniques observed but was ineffective. PRN Vistaril 25mg PO given for anxiety. Will cotninue to monitor for effectiveness of medication.
[2016-10-23 12:00] VITALS: BP 120/82
--- NOTE | 2016-10-23 12:39 | NUR ---
Re-assessment; Patient is calm and comfortable at this time. PRN medication is effective.
[2016-10-23 16:00] VITALS: BP 134/86
--- NOTE | 2016-10-23 18:35 | NUR ---
End of shift note; Patient is AOX4. Patient was placed on 5 day Ativan taper, no adverse reactions noted. Patient was compliant with treatment plan and medication regime. Medications were effective in reducing withdrawal symptoms. Patient is on fall and seizure precautions. Bed in lowest position, call light within reach. Met all needs.
--- NOTE | 2016-10-23 19:25 | NUR ---
START OF SHIFT NOTE Pt is a 35 y/o female admitted for ETOH and Xanax dependence and use. Pt has an allergy to strawberries and also reported having seasonal allergies. Pt has a PMH of thyroidectomy, breast augmentation, , anxiety, and depression. Per day shift nurse pt continues on a 5 day Ativan taper(day 5) and is tolerating medication well with no s/e or a/r reported. Pt received Vistaril 25 mg PO PRN and Clonidine 0.1 mg PO PRN during the day shift. Last CIWA: 4(1600). At this time pt is in the hallway Pt stated "I'm doing good today. I was a little more active. We did yoga, and played the games downstairs." Pt denies any pain/discomfort at this time. Pt is encouraged to notify staff of any changes in condition or of any concerns. Pt verbalized an understanding. Will continue to monitor.
[2016-10-23 20:00] VITALS: BP 123/87
[2016-10-23] MEDS: CLONIDINE HCL 0.1 MG TABLET PO SCH (20:03)
[2016-10-23] MEDS: ESCITALOPRAM OXALATE 10 MG TABLET PO SCH (20:04)
[2016-10-23] MEDS ORDERED: LORAZEPAM 1 MG TABLET PO ONE (21:30)
[2016-10-23] MEDS ORDERED: PROPRANOLOL HCL 20 MG TABLET PO ONE (21:45)
--- NOTE | 2016-10-23 21:47 | NUR ---
ATIVAN AND INDERAL PRN ADMINISTRATION Pt was seen by and new order for Ativan 2 mg PO x 1 and Inderal 20 mg PO x 1 were given. Pt CIWA at this time is 13. Will monitor for effectiveness.
--- NOTE | 2016-10-23 22:47 | NUR ---
ATIVAN AND INDERAL PRN REASSESSMENT Pt stated " I feel so much better." CIWA is now a 2. PRNS effective. Will continue to monitor.
[2016-10-24] VITALS: BP 108/70
--- NOTE | 2016-10-24 04:00 | NUR ---
CIWA AND VITALS REFUSED Pt refused to be assessed and have vitals taken at this time. Pt was encouraged x 3 with risks and benefits explained, but the pt still declined. All safety measures in place. Will continue to monitor. Addendum: 10/24/16 at 0582 by PATRICIA DISLA LVN Amended: Links added.
--- NOTE | 2016-10-24 07:07 | NUR ---
END OF SHIFT NOTE Pt is a 35 y/o female admitted for ETOH and Xanax dependence and use. Pt has an allergy to strawberries and also reported having seasonal allergies. Pt has a PMH of thyroidectomy, breast augmentation, , anxiety, and depression. Pt continues on a 5 day Ativan taper and is tolerating medication well with no s/e or a/r reported. Pt received Ativan 2 mg PO x1 and Inderal 20 mg PO x1 during the shift. Last CIWA:8 (8700). Pt slept for a total of 6 hours. All safety measures in place. Endorsed to the oncoming nurse.
--- NOTE | 2016-10-24 07:08 | NUR ---
Start of Shift Notes: Received patient in her room. Alert and oriented x 4. Verbally responsive. Respirations even and unlabored. No SOB noted. Skin warm and dry to touch. Abdomen soft and non-distended. No complains of abdominal discomfort noted. No complains of N/V/D or constipation noted. Voids independently. Ambulatory ad john with steady gait. Patient is a 35 year old male admitted for ETOh and BZO dependence who was placed on a 6-day Ativan taper as ordered. No adverse reactions noted. Has past medical hx of thyroidectomy, breast augmentation, , anxiety and depression and seizures. On fall and seizure precaution. Educated patient on her current plan of care for the day and his medication regimen. Encouraged oral fluid intake and encouraged group participation to learn new skills to prevent relapse. Will continue to monitor closely.
[2016-10-24] MEDS: PANTOPRAZOLE SODIUM 40 MG TABLET.DR PO SCH (07:29)
[2016-10-24 08:00] VITALS: BP 136/86
[2016-10-24] MEDS: THIAMINE HCL 100 MG TABLET PO SCH (08:39)
[2016-10-24] MEDS: GABAPENTIN 300 MG CAPSULE PO SCH ×3 (08:39→20:21)
[2016-10-24] MEDS: MULTIVITAMINS,THERAPEUTIC TABLET PO SCH (08:39)
[2016-10-24] MEDS: CHOLECALCIFEROL 1,000 UNIT TABLET PO SCH (08:39)
[2016-10-24] MEDS: CETIRIZINE HCL 10 MG TABLET PO SCH (08:40)
[2016-10-24] MEDS: FOLIC ACID 1 MG TABLET PO SCH (08:40)
[2016-10-24] MEDS: PROPRANOLOL HCL 20 MG TABLET PO SCH ×2 (08:40→20:21)
[2016-10-24] MEDS: IBUPROFEN 400 MG TABLET PO PRN ×2 (08:46→18:24)
--- NOTE | 2016-10-24 08:46 | NUR ---
Motrin PRN given: Patient noted with complain of 5/10 toothache. Medicated patient with Motrin 400 mg PO as ordered. Will monitor for effectiveness. No complains of chewing discomfort noted.
[2016-10-24] MEDS ORDERED: LORAZEPAM 1 MG TABLET PO SCH (09:00)
--- NOTE | 2016-10-24 09:46 | NUR ---
Re-assessment: Per patient, PL is now 08/02. PRN Motrin was effective in reducing toothache.
[2016-10-24 12:00] VITALS: BP 119/76
[2016-10-24 14:25] LABS: *AMPHETAMINE, URINE NEGATIVE (NEGATIVE); *BARBITURATE, URINE NEGATIVE (NEGATIVE); *CANNABINOID, URINE NEGATIVE (NEGATIVE); *COCCAINE, URINE NEGATIVE (NEGATIVE); *OPIATE, URINE NEGATIVE (NEGATIVE); *PHENCYCLIDINE SCREEN,URINE NEGATIVE (NEGATIVE)
[2016-10-24] MEDS ORDERED: DIPH50CA37 PO (15:38)
[2016-10-24] MEDS ORDERED: PANT40TA2 PO (15:38)
[2016-10-24] MEDS ORDERED: CHOL10002 PO (15:38)
[2016-10-24] MEDS ORDERED: Gabapentin PO (15:38)
[2016-10-24] MEDS ORDERED: PROP20TA22 PO (15:38)
[2016-10-24] MEDS ORDERED: Ondansetron SL (15:38)
[2016-10-24] MEDS ORDERED: HYDR-3895 PO (15:38)
[2016-10-24 16:00] VITALS: BP 131/76
--- NOTE | 2016-10-24 18:25 | NUR ---
Motrin 400mg PO given: Patient noted with complain of 4/10 toothache. Medicated patient with Motrin 400 mg PO as ordered. Will monitor for effectiveness.
--- NOTE | 2016-10-24 18:50 | NUR ---
End of Shift Notes: Patient is a 35 year old female admitted for ETOH and BZO dependence who was placed on a 5-day Ativan taper as ordered. No adverse reactions noted. Has past medical hx of thyroidectomy, breast augmentation, , anxiety, depression and seizure. FULL CODE. Vegetarian diet. On fall and seizure precaution. Allergic to strawberries. Prior to admission, patient was using 10=12 shots of hard liquor daily and 4 mg of Xanax a day. VS monitored closely q 4 hours. No significant abnormalities noted. Withdrawal symptoms were closely monitored. Initial CIWA 2. Patient presented with anxiety and mild sweats. Last CIWA 0. Medicated patient with Motrin 400 mg PO as ordered at 0846 for 5/10 toothache with help after 1 hour and at 1825 due to 5/10 toothache. Patient, Ativan has been helping her with her withdrawal symptoms. Completed Ativan taper today. Will be discharging tomorrow. UDS in and resulted. Patient able to participate in group and therapy and social activities. Appetite good. All needs met and attended. Will continue to monitor closely.
[2016-10-24 20:00] VITALS: BP 126/73
--- NOTE | 2016-10-24 20:00 | NUR ---
Start of Shift Patient is a 35 year old, female, admitted for ETOH and BZO dependence. Pt was placed on a 6-day Ativan taper, started on 10/19/2016, last does administered 10/24/2016 in the AM as ordered. No adverse reactions noted. Pt reports PMHx of Thyroidectomy, breast augmentation, , anxiety and depression and seizures due to withdrawal. Pt is AAOx4, with no SOB noted at this time. No anxiety reported or observed. Pt is ambulatory with steady gait. No open skin noted. Fall, universal and safety prec in place. Call light within reach. Kept pt warm, dry and comfortable. All needs met. CIWA=0. Will continue to monitor pt.
[2016-10-24] MEDS ORDERED: BENZOCAINE ORAL CARE 12 ML BOTTLE MM PRN (20:15)
[2016-10-24] MEDS: ESCITALOPRAM OXALATE 10 MG TABLET PO SCH (20:21)
[2016-10-24] MEDS: diphenhydrAMINE 50 MG CAPSULE PO PRN (22:47)
[2016-10-24] MEDS: ACETAMINOPHEN 325 MG TABLET PO PRN (22:47)
--- NOTE | 2016-10-24 22:48 | NUR ---
RN note PRN Tylenol and Benadryl Pt c/o toothache=4/10 and sleeplessness. Administered Tylenol 650 mg PO for pain and Benadryl 50 mg PO for sleeplessness. No SOB noted. Will reassess.
[2016-10-25] VITALS: BP 123/75
[2016-10-25] MEDS: CLONIDINE HCL 0.1 MG TABLET PO PRN (00:22)
--- NOTE | 2016-10-25 00:22 | NUR ---
RN note PRN Clonidine Pt c/o feeling anxious and restless. NF=226/89, pulse=91. Administered Clonidine 0.1 mg PO as ordered. Will reassess.
--- NOTE | 2016-10-25 00:32 | NUR ---
RN note reassess Pt verbalized toothache=08/30. Per pt, Benadryl not effective. Clonidine recently administered for anxiety.
[2016-10-25] MEDS: IBUPROFEN 400 MG TABLET PO PRN ×2 (01:15→07:52)
--- NOTE | 2016-10-25 01:16 | NUR ---
RN note PRN Motrin Pt c/o toothache=09/30 and requests for Motrin. Administered Motrin 400 mg PO as ordered. Will reassess.
--- NOTE | 2016-10-25 01:20 | NUR ---
RN note reassess Pt verbalized relief from anxiety and feeling of restlessness. No SOB nor facial grimacing noted.
--- NOTE | 2016-10-25 02:20 | NUR ---
RN note reassess Pt asleep on bed, no SOB nor facial grimacing noted.
[2016-10-25] MEDS: PANTOPRAZOLE SODIUM 40 MG TABLET.DR PO SCH (06:44)
--- NOTE | 2016-10-25 07:19 | NUR ---
End of Shift Patient is a 35 year old, female, admitted for ETOH and BZO dependence. Pt was placed on a 6-day Ativan taper, started on 10/19/2016, last does administered 10/24/2016 in the AM as ordered. No adverse reactions noted. Pt reports PMHx of Thyroidectomy, breast augmentation, , anxiety and depression and seizures due to withdrawal. Pt is AAOx4, with no SOB noted at this time. No anxiety reported or observed. Pt is ambulatory with steady gait. No open skin noted. Fall, universal and safety prec in place. Call light within reach. Kept pt warm, dry and comfortable. All needs met. Pt to be discharged today and she is aware. CIWA=1, slept for 4 hours. Endorsed to AM shift nurse for continuity of care.
--- NOTE | 2016-10-25 07:30 | NUR ---
start of shift note: received pt from retail shift supervisor nurse, pt is in stable condition at this time. pt is alert and oriented. pt is verbalizing she has a tooth ache and requesting for motrin pt is admitted to [facility] for etoh/benzo withdrawal. pt is set for discharge today. will assist pt in discharging and will continue to monitor pt for any changes.
--- NOTE | 2016-10-25 08:30 | NUR ---
PRN REASSESSMENT: PT STATED TOOTH ACHE IS RELIEVED. PAIN LEVEL 2/10.
[2016-10-25 10:05] VITALS: BP 120/68
[2016-10-25] MEDS: PROPRANOLOL HCL 20 MG TABLET PO SCH (10:05)
[2016-10-25] MEDS: MULTIVITAMINS,THERAPEUTIC TABLET PO SCH (10:05)
[2016-10-25] MEDS: FOLIC ACID 1 MG TABLET PO SCH (10:05)
[2016-10-25] MEDS: THIAMINE HCL 100 MG TABLET PO SCH (10:05)
[2016-10-25] MEDS: CHOLECALCIFEROL 1,000 UNIT TABLET PO SCH (10:05)
[2016-10-25] MEDS: CETIRIZINE HCL 10 MG TABLET PO SCH (10:05)
[2016-10-25] MEDS: GABAPENTIN 300 MG CAPSULE PO SCH (10:05)
--- NOTE | 2016-10-25 11:07 | NUR ---
DISCHARGE NOTE: pt left the unit in stable condition, no s/s of pain, discomfort or any withdrawal symptoms. pt teaching was administered and pt verbalized understanding. pt's V/S WNL. pt's belongings were returned. pt will be transferred to [facility]
== END 2016-10-25 11:07 | DRG 895 ==
LOC: SRC 12:12
PROVIDERS: ADMIT Internal Medicine; ATTEND Internal Medicine
PROC: HZ2ZZZZ Detoxification Services for Substance Abuse Treatment (ICD-10-PCS; principal; 2016-10-19)
PROC: HZ41ZZZ Group Counseling for Substance Abuse Treatment, Behavioral (ICD-10-PCS; 2016-10-21)
DX: F10.239 Alcohol dependence with withdrawal, unspecified (principal); E87.3 Alkalosis; F33.1 Major depressive disorder, recurrent, moderate; K70.10 Alcoholic hepatitis without ascites; K29.20 Alcoholic gastritis without bleeding; F13.230 Sedative, hypnotic or anxiolytic dependence with withdrawal, uncomplicated; Y90.9 Presence of alcohol in blood, level not specified; E87.6 Hypokalemia; E55.9 Vitamin D deficiency, unspecified; Z81.1 Family history of alcohol abuse and dependence; Z81.3 Family history of other psychoactive substance abuse and dependence; Z81.8 Family history of other mental and behavioral disorders; Z91.018 Allergy to other foods; G47.00 Insomnia, unspecified; F41.9 Anxiety disorder, unspecified; J30.2 Other seasonal allergic rhinitis; Z72.0 Tobacco use; Z79.899 Other long term (current) drug therapy; E86.0 Dehydration; E83.39 Other disorders of phosphorus metabolism; E07.81 Sick-euthyroid syndrome; D69.6 Thrombocytopenia, unspecified; D72.823 Leukemoid reaction
CPT/HCPCS: 36415; 70030-TC; 80307; 80346; 82306; 82746; 83690; 83735; 84100; 84443; 84703; 85025; 85610; 86580; 86592; 86705; 86803; 87340; 87806; 93005; A4663; G6040-TC; J2405; J2550; J3411; Q0162; Q0163

== ENCOUNTER 2018-03-19 20:31 | Inpatient (IN) | payer BC, OTHER ==
[~2018-03-19] VITALS: Ht 170.2 cm; Wt 55.8 kg
[~2018-03-19 20:31] MED LIST: CETI-102 PO; CHOL10002 PO; DIPH50CA37 PO; ESCI10TA PO; Gabapentin PO; HYDR-3895 PO; Ondansetron SL; PANT40TA2 PO; PROP20TA19 PO
--- NOTE | 2018-03-19 21:14 | NUR ---
Pre-Admission Pt is a 37 year old female seen in intake. Pt is alert/oriented x4, however presents with anxiety. Pt is seen to be with flushed skin and fine tremors. Pt is able to respond appropriately to admission questions and reports being admitted to [facility] for ETOH and benzodiazepine use. Vital signs taken, rules of the unit explained such as vital signs Q4H, wasting of controlled substances, kitchen access, and smoking patio privileges. Will continue with admission process upon arrival on unit.
--- NOTE | 2018-03-19 21:30 | NUR ---
Admission Patient is a 37 year old female who presents to [facility] for medically supervised withdrawal from ETOH-Vodka and Benzodiazepines-Xanax. Patient was escorted on to the unit at 2120, where skin check was rendered. Skin is noted with a dry scab to the lower left leg and open wound to the lower lip. Patient states I dont know what happen. Esther been drunk for the past couple of days and I might have fallen. Patient is also noted with multiple scattered bruises throughout her body. Patient is noted ambulatory with no assistance needed. She is noted with increased anxiety, restlessness, tremulous, flushed face, easily irritable, increased chills and sweats. Patient is noted to be odorous and disheveled. Patient is alert and oriented x4. Speech is clear, but is noted to with worried, depressed affect. Patient reports her substance use as: 1. ETOH-Vodka: Patient took her first drink at the age of 24. She recently relapsed on 03/14/18 drinking for the past 5 days 210 mls daily. Last drink is noted 03/19/18 1000 drinking 210mls. 2. Benzo-Xanax: Patient was first prescribed Xanax at the age of 24. She is currently using 2mg daily for the past 2 months. Last dose was noted 03/19/18 at 0900 taking 1.5mg. Patient explains her typically signs and symptoms of withdrawal are "nausea, vomiting, tremors, anxiety, sweats, chills. Patient is noted with history of seizures with last seizure noted two years ago due to alcohol and benzo withdrawal and received medical care. Patient verbalizes withdrawal induced delirium but is unable to recall when and patient is asked to elaborate, she is noted to get very anxious. She states I dont want to take about it right now. Patient denies withdrawal induced cardiac complications and overdoses. She is noted with history of blackouts with the most recent noted 03/18/18 and states I was drinking and taking xanax. I dont know what has been going on for the past few days. A good example is I dont know if I fell and hit my lip. Patient is noted with past medical history of anxiety since the age of 24 and was prescribed Xanax, depression and prescribed Lexapro 20mg. Patient is also noted with Chronic migraines and is prescribed Topamax but is unable to recall dosage, and recently diagnosed with PTSD. She denies suicidal ideations and any history of [facility]. Patient is noted with multiple treatment admissions with a previous admission to [facility] in September 2016 and 10/25/16. Patient was then noted to immediately go to [facility] for 30 days. She is able to maintain sobriety up until 2 months ago where she relapsed initially taking Benzos due to recent loss of her grandparents. Patient more recently on 03/14/18 started drinking vodka and states I just resorted back to my old coping, which is just drinking nonstop. When asked why she decided to get sober patient states my gave me an ultimatum and told me if I dont come in then he would leave me. I also want to get back to my [facility] sobriety. Patient explains loss of loved ones, the thought of being alone, and stress as possible triggers for relapse as well as barriers for getting sober. She explains her support system as her , sponsor, and close friends. Patient is able to describe consequences from using as im going to possibly lose my which I worked so hard to get. I take pride in it and now im here. Patient explains that this admission will be different from previous admissions because she is looking forward to residential treatment to achieve her sobriety. Vital signs rendered and noted. Breathing is even and non labored. Lung sounds clear. Bowel sounds noted with LMB noted 03/19/18. Patient follows a regular diet. Allergies to Strawberries. Full code. Height 57. Weight 123. Patient reports of smoking 20 cigarettes a day. Educated patient about plan of care including detox, group therapy, individual therapy, discharge planning, and she was able to verbalize understanding. Admission CIWA 20. Relayed all information to MD with new orders for PRN medications for increased signs and symptoms to withdrawal. Labs ordered. All needs attended to promptly. Will continue plan of care as ordered.
[2018-03-19 21:50] VITALS: BP 115/75
[2018-03-19] MEDS ORDERED: LORAZEPAM 1 MG TABLET PO ONE (22:00)
[2018-03-19] MEDS ORDERED: MAG HYDROX/AL HYDROX/SIMETH 30 ML LIQUID UDC PO PRN (22:00)
[2018-03-19] MEDS ORDERED: LORAZEPAM 1 MG TABLET PO PRN (22:00)
[2018-03-19] MEDS ORDERED: MIRALAX 17 GM POWD.PACK PO PRN (22:00)
[2018-03-19] MEDS ORDERED: LORAZEPAM 2 MG/1 ML VIAL IM PRN (22:00)
[2018-03-19] MEDS ORDERED: MAGNESIUM HYDROXIDE 30 ML LIQUID UDC PO PRN (22:00)
[2018-03-19] MEDS ORDERED: LOPERAMIDE HCL 2 MG CAPSULE PO PRN ×2 (22:00)
[2018-03-19] MEDS ORDERED: DICYCLOMINE HCL 20 MG TABLET PO PRN (22:00)
[2018-03-19 22:02] LABS: *URINE HCG, QUAL NEGATIVE (NEGATIVE)
[2018-03-19 22:09] LABS: *AMPHETAMINE, URINE NEGATIVE (NEGATIVE); *BARBITURATE, URINE NEGATIVE (NEGATIVE); *CANNABINOID, URINE NEGATIVE (NEGATIVE); *COCCAINE, URINE NEGATIVE (NEGATIVE); *OPIATE, URINE NEGATIVE (NEGATIVE); *PHENCYCLIDINE SCREEN,URINE NEGATIVE (NEGATIVE)
--- NOTE | 2018-03-19 22:25 | NUR ---
PRN Medication Administration Upon arrival to unit, patient is noted with increased anxiety, restlessness, tremulous, increased chills, and is easily irritable. CIWA noted to be 20. MD made aware with one time dose of Ativan 2mg to be give now. Will continue to monitor.
[2018-03-19] MEDS ORDERED: THIAMINE HCL 200 MG/2 ML VIAL IM ONE (22:30)
[2018-03-19 22:38] LABS: BASOPHILS # (AUTO) 0.1 K/uL (0.0-8.0); BASOPHILS % (AUTO) 0.5 % (0.0-2.0); EOSINOPHILS % (AUTO) 0.3 % (0.0-7.0); HEMATOCRIT 43.5 % (31.2-41.9); HEMOGLOBIN 14.8 g/dL (10.9-14.3); MEAN CORPUSCULAR HEMOGLOBIN 32.6 uug (24.7-32.8); MEAN CORPUSCULAR HGB CONC 34 g/dL (32.3-35.6); MEAN CORPUSCULAR VOLUME 95.5 fL (75.5-95.3); MONOCYTES # (AUTO) 0.3 K/uL (2.0-10.0); MONOCYTES % (AUTO) 2.5 % (0.0-11.0); NEUTROPHILS # (AUTO) 8.1 K/uL (1.8-8.9); NEUTROPHILS % (AUTO) 70.7 % (38.5-71.5); PLATELET COUNT (AUTO) 182 K/uL (179-408); RED BLOOD CELL COUNT(AUTO) 4.56 MIL/uL (3.63-4.92); WHITE BLOOD COUNT (AUTO) 11.5 K/uL (3.8-11.8)
[2018-03-19] MEDS: ONDANSETRON ODT 4 MG TAB.RAPDIS SL PRN (22:38)
--- NOTE | 2018-03-19 22:40 | NUR ---
PRN Medication Administration Patient verbalizes increased nausea. PRN Zofran SL administered. Will continue to monitor.
[2018-03-19 22:57] LABS: BILIRUBIN,TOTAL 0.6 mg/dL (0.2-1.0); CREATININE 0.9 mg/dL (0.6-1.3); MAGNESIUM 1.5 mg/dL (1.8-2.4); TOTAL PROTEIN, SERUM 7.5 g/dL (6.4-8.2)
[2018-03-19 23:05] LABS: THYROID STIMULATING HORMONE 4.366 mIU/mL (0.358-3.740)
[2018-03-19 23:12] LABS: POTASSIUM 2.8 mmol/L (3.5-5.1)
--- NOTE | 2018-03-19 23:30 | NUR ---
PRN Medication Reassessment patient is noted in her bed awake, alert and verbally responsive. Breathing even and non labored. Patient verbalizes "the medication has help but every now and then my anxiety comes back and I get nausea again." Encouraged patient to attempt deep breathing exercises or distraction using television. Patient verbalized understanding. PRN Zofran SL and One time dose of Ativan noted to be intermittently effective. Will continue to monitor.
[2018-03-19] MEDS ORDERED: POTASSIUM CHLORIDE 20 MEQ TAB.PRT.SR PO ONE (23:50)
[2018-03-19] MEDS ORDERED: MAGNESIUM OXIDE 400 MG TABLET PO ONE (23:50)
[2018-03-20 00:17] VITALS: BP 110/71
[2018-03-20] MEDS: ONDANSETRON 4 MG/2 ML VIAL IM PRN ×3 (00:27→22:24)
[2018-03-20] MEDS: LORAZEPAM 1 MG TABLET PO PRN ×3 (00:29→16:29)
--- NOTE | 2018-03-20 00:30 | NUR ---
PRN Medication Administration patient is noted with increased nausea, anxiety, irritability, tremulous, light sensitivity, chills, sweats, and inability of falling asleep due to symptoms. CIWA noted to be 24. PRN Ativan 2mg, Zofran IM, and Benadryl administered. patient is also due to potassium 40meq and Mag ox 400mg. Patient requests for medications to be administered once nausea has subsided. CN and MD made aware. All needs attended to promptly. Will continue to monitor.
[2018-03-20] MEDS: IBUPROFEN 600 MG TABLET PO PRN ×3 (00:57→20:28)
--- NOTE | 2018-03-20 01:00 | NUR ---
PRN Medication Reassessment/PRN medication Administration patient is noted in bed with eyes closed but is easily awakened upon entering room. Patient is able to verbalize medication was effective in minimizing signs and symptoms of withdrawal. Potassium and Mag Ox administered and tolerated. patient is also noted verbalizing increased pain due to toothache and requests Motrin. PRN Zofran IM noted to be effective. PRN Motrin administered. Will continue to monitor.
--- NOTE | 2018-03-20 01:30 | NUR ---
PRN Medication Reassessment Patient is noted in bed with eyes closed. Breathing even and non labored. No facial grimacing or restlessness noted. Patient received PRN Ativan 2mg, Benadryl, and Motrin with medications noted to be effective. Will continue to monitor.
[2018-03-20] MEDS ORDERED: TOPI25TA PO (03:13)
[2018-03-20 04:30] VITALS: BP 109/67
--- NOTE | 2018-03-20 04:30 | NUR ---
CIWA Assessment Patient is noted in bed with eyes closed. Breathing even and non labored. Vital signs rendered. CIWA not able to be completed as per order. Will continue to monitor.
--- NOTE | 2018-03-20 07:19 | NUR ---
End of Shift Patient is noted in bed with eyes closed. Breathing even and non labored. Patient is currently receiving PRN medications for increased signs and symptoms of withdrawal. Patient noted with increased anxiety, sweats, chills, nausea, tremulous, irritability, and restlessness. One time Ativan 2mg, PRN Ativan 2mg, Zofran SL, Zofran IM, Motrin, and Benadryl administered and noted to be effective. Last noted CIWA 6. Patient noted to sleep a total of 6 hours. All needs attended to promptly. Will endorse to continue plan of care as ordered.
--- NOTE | 2018-03-20 07:22 | NUR ---
Start Of Shift Patient is a 37 yr old female who was admitted to [facility] on 03/19/18 for a medically supervised withdrawal from ETOH ( Vodka) and Benzodiazepines ( Xanax), she has not been placed on any taper yet but has PRN medications available until assessment by MD. PRN medications given on PM shift: Ativan x2 PO, Zofran 4mg IM, Zofran 4mg SL, Motrin and Benadryl, she slept for 6 hours and last CIWA was 6. Currently she is in bed asleep, breathing even and unlabored, call light within reach, continue care and offer support and encouragement as needed.
[2018-03-20 08:00] VITALS: BP 106/54
--- NOTE | 2018-03-20 08:00 | NUR ---
[facility] 24 Withdrawal symptoms present as increased anxiety, restlessness, gross bilateral hand tremors, constant nausea, diaphoresis, toothache and irritability and fatigue. PRN Ativan 2mg PO, Motrin 600mg PO and Zofran 4mg SL will be given
[2018-03-20] MEDS: FOLIC ACID 1 MG TABLET PO SCH (08:08)
[2018-03-20] MEDS: MULTIVITAMINS,THERAPEUTIC TABLET PO SCH (08:08)
[2018-03-20] MEDS: THIAMINE HCL 100 MG TABLET PO SCH (08:08)
[2018-03-20] MEDS: ONDANSETRON ODT 4 MG TAB.RAPDIS SL PRN ×3 (08:09→20:28)
--- NOTE | 2018-03-20 08:10 | NUR ---
PPD test refused
--- NOTE | 2018-03-20 08:10 | NUR ---
PRN Ativan 2mg PO given for CIWA 24 and increased s/s of withdrawal ( see CIWA Note) Motrin 600mg PO given for tooth/headache 5/10 Zofran 4mg SL given for constant nausea
[2018-03-20] MEDS ORDERED: TUBERCULIN,PURIF.PROT.DERIV. 5 TU/0.1 ML TEST ID ONE (09:00)
--- NOTE | 2018-03-20 09:10 | NUR ---
PRN Reassess Patient states that Ativan 2mg PO helped ease her anxiety, CIWA now 20 ( was 24) Motrin and Zofran effective for pain and nausea
[2018-03-20] MEDS: ESCITALOPRAM OXALATE 10 MG TABLET PO SCH (09:50)
--- NOTE | 2018-03-20 10:42 | NUR ---
Therapist prompted client to attend group therapy.
[2018-03-20 12:00] VITALS: BP 106/44
[2018-03-20] MEDS ORDERED: 3 DAY TAPER OF VALIUM-SERENITY PROTOCOL PO PRN (12:30)
[2018-03-20] MEDS: DIAZEPAM 10 MG TABLET PO SCH ×2 (12:51→20:28)
--- NOTE | 2018-03-20 12:52 | NUR ---
PRN Zofran 4mg SL given fotr constant nausea, no vomiting
--- NOTE | 2018-03-20 13:00 | NUR ---
CIWA 24 Withdrawal symptoms present as increased anxiety, restlessness, gross bilateral hand tremors, constant nausea, diaphoresis, toothache and irritability and fatigue. Scheduled Taper started, 10mg PO Valium given and 4mg SL Zofran PRN given
--- NOTE | 2018-03-20 13:00 | NUR ---
PRN Zofran 4mg SL given for nausea
[2018-03-20] MEDS ORDERED: LIDOCAINE VISCUS 2% 15 ML UDC MM PRN (13:30)
[2018-03-20] MEDS: TOPIRAMATE 25 MG TABLET PO SCH (13:51)
--- NOTE | 2018-03-20 14:00 | NUR ---
PRN Reassess Zofran somewhat effective, slight nausea still present, sprite and saltine crackers given
[2018-03-20 16:00] VITALS: BP 106/58
--- NOTE | 2018-03-20 16:00 | NUR ---
[facility] 24 Patient presents with increased anxiety, tremors, irritability,constant nausea, she is tearful and emotional PRN Ativan and Zofran IM will be given
--- NOTE | 2018-03-20 16:25 | NUR ---
PRN Ativan 2mg PO given for CIWA 24= high anxiety, tremors, tearfulness, emotional volatility Zofran 4mg IM given for constant nausea and emesis x2
--- NOTE | 2018-03-20 17:25 | NUR ---
PRN Reassess patient states she feels less anxious ( she got to call her which relieved some of her anxiety) N/V ceased Atkathryn and Mathew were effective Addendum: 03/20/18 at 1743 by NIGEL ALDANA RN MARIVEL Lopez
[2018-03-20 18:07] LABS: BILIRUBIN,TOTAL 1.5 mg/dL (0.2-1.0); CREATININE 0.8 mg/dL (0.6-1.3); MAGNESIUM 1.8 mg/dL (1.8-2.4); POTASSIUM 3.1 mmol/L (3.5-5.1); TOTAL PROTEIN, SERUM 6.4 g/dL (6.4-8.2)
[2018-03-20] MEDS ORDERED: POTASSIUM CHLORIDE 20 MEQ TAB.PRT.SR PO ONE (18:30)
--- NOTE | 2018-03-20 18:53 | NUR ---
End Of Shift Patient is a 37 yr old female who was admitted to [facility] on 03/19/18 for a medically supervised withdrawal from ETOH ( Vodka) and Benzodiazepines ( Xanax), she has been placed on a 3 day Valium taper yet and today is day 1. PRN medications given on this shift: Ativan 2mg PO x2, Zofran 4mg SL x2, Zofran 4mg SL, Xylocaine Viscus for lip sore. Potassium replaced with 40 MEQ K-Dur She had a fluid intake of 875 ML,2 Voids and 1 BM, her last CIWA was 20@ 1730. Her withdrawal symptoms have presented as nausea, gross hand tremors, decreased appetite, increased anxiety and lethargy. She has been teary at times today and quite emotional .Continue MD plan of care and offer support and encouragement as needed. Endorsed to fast food shift lead nurse.
--- NOTE | 2018-03-20 19:40 | NUR ---
Start of Shift Received report on 37 year old female admitted to [facility] for medically supervised withdrawal from ETOH and benzodiazepines. Pt received PRN Zofran x 3, Ativan x 2, and Motrin. Last CIWA 20 @1600. Pt currently on day 1 of 3 day Valium taper. Pt in room flushed, anxious, depressed, isolative, withdrawn. Pt complains of being restless and unable to sleep. Respirations even and unlabored. Will continue to monitor.
[2018-03-20] MEDS: diphenhydrAMINE 50 MG CAPSULE PO PRN (20:28)
--- NOTE | 2018-03-20 20:28 | NUR ---
PRN Zofran/Benedryl Pt complain of nausea with 1 emesis and requests Benedryl for sleep. Given Zofran tablet and Benedryl per order. Will monitor effect.
[2018-03-20 20:32] VITALS: BP 111/76
--- NOTE | 2018-03-20 21:28 | NUR ---
Reassess Zofran/Benedryl Pt denies emesis and no nausea at this time, Zofran effective. Resting, Benadryl effective.
[2018-03-20] MEDS: HYDROXYZINE PAMOATE 25 MG CAPSULE PO PRN (22:24)
--- NOTE | 2018-03-20 22:24 | NUR ---
PRN Zofran IM/Vistaril Pt complains of increased nausea and anxiety. Zofran IM and Vistaril PO given per order. Will monitor effect.
--- NOTE | 2018-03-21 00:05 | NUR ---
CIWA/ Vitals CIWA deferred. Vitals refused. Pt in bed, resting with eyes closed. Respirations even and unlabored. Continue to monitor.
--- NOTE | 2018-03-21 04:09 | NUR ---
CIWA/Vitals CIWA deferred. Vitals refused. Pt in bed resting, Respirations even and unlabored. Continue to monitor.
[2018-03-21 06:05] LABS: HEPATITIS B SURFACE AG Negative (Negative)
--- NOTE | 2018-03-21 06:52 | NUR ---
End of Shift Will endorse care of 37 year old female admitted to [facility] for medically supervised withdrawal from ETOH and benzodiazepines. Pt received PRN Zofran x 2, Benedryl x 1, and Vistaril x 1. Last CIWA 20 @1999. Pt currently on day 2 of 3 day Valium taper. PO intake 1541ml, voided x3, BM x 0, and slept x 8 hours. Pt in bed resting with eyes closed. Respirations even and unlabored.
--- NOTE | 2018-03-21 07:30 | NUR ---
Start of shift Last CIWA 20 at 1999. Pt started on 3 day Valium taper. Pt affect is guarded, flat , anhedonia, dysphoria, and depressed mood. Pt withdrawal symptoms include nausea, no emesis, fine tremors, body aches, chills, fatigue, poor appetite, sweats, and moist skin. Room is cluttered with wrappers, empty water bottles, clothes and used linens. Drinks and food spilled on floor, in her bed and on her tray. Encouraged Pt to attend group therapy sessions to identify positive coping skills to maintain sobriety. Fall and Seizure Precautions. Bed in lowest position. Side rails up x2. Call light functioning and within reach. All needs attended and met. Will continue to monitor for withdrawal symptoms.
[2018-03-21 07:42] LABS: CREATININE 0.8 mg/dL (0.6-1.3); POTASSIUM 3.9 mmol/L (3.5-5.1)
[2018-03-21 08:00] VITALS: BP 99/56
[2018-03-21] MEDS: MULTIVITAMINS,THERAPEUTIC TABLET PO SCH (08:00)
[2018-03-21] MEDS: FOLIC ACID 1 MG TABLET PO SCH (08:00)
[2018-03-21] MEDS: IBUPROFEN 600 MG TABLET PO PRN ×3 (08:00→21:55)
[2018-03-21] MEDS: TOPIRAMATE 25 MG TABLET PO SCH (08:00)
[2018-03-21] MEDS: THIAMINE HCL 100 MG TABLET PO SCH (08:01)
[2018-03-21] MEDS: ESCITALOPRAM OXALATE 10 MG TABLET PO SCH (08:01)
[2018-03-21] MEDS: DIAZEPAM 5 MG TABLET PO SCH ×3 (08:01→20:33)
[2018-03-21] MEDS: ONDANSETRON ODT 4 MG TAB.RAPDIS SL PRN ×2 (08:01→18:45)
--- NOTE | 2018-03-21 08:03 | NUR ---
PRN ZOFRAN 4 MG SL FOR NAUSEA, NO EMESIS PRN IBUPROFEN 600 MG FOR TOOTH PAIN #4/10 AND GENERALIZED BACK ACHES.
--- NOTE | 2018-03-21 08:25 | NUR ---
CIWA 19- Pt withdrawal symptoms include moderate nausea, no emesis, moderate anxiety, fine tremors, body aches, chills, fatigue, poor appetite r/t nausea, sweats, and moist skin.
--- NOTE | 2018-03-21 09:05 | NUR ---
Reassess Zofran- Pt reports nausea improved and she was able to eat some breakfast. Reassess Ibuprofen- Pt reports tooth pain now #07/02.
[2018-03-21] MEDS: ONDANSETRON 4 MG/2 ML VIAL IM PRN ×2 (10:36→19:42)
--- NOTE | 2018-03-21 10:38 | NUR ---
PRN ZOFRAN 4 MG IM FOR 2 EPISODES OF EMESIS AND NAUSEA. PT REPORTS SHE VOMITS AFTER BREAKFAST AND AGAIN ABOUT 10 MINUTES AGO.
[2018-03-21] MEDS: HYDROXYZINE PAMOATE 25 MG CAPSULE PO PRN ×2 (10:41→21:55)
[2018-03-21] MEDS: ACETAMINOPHEN 325 MG TABLET PO PRN ×2 (10:42→19:41)
--- NOTE | 2018-03-21 10:43 | NUR ---
PRN VISTARIL 25 MG FOR ANXIETY, PT CRYING, TEARFUL ABOUT A CONVERSATION WITH HER DAUGHTER PRN TYLENOL 650 MG PO FOR HEADACHE #6/10
--- NOTE | 2018-03-21 11:08 | NUR ---
Reassess Leonorfran- Pt had no further emesis. Pt reports nausea improved. Pt felt well enough to attend group. Reassess Luis Angel- Pt reports she is calmer and able to attend group therapy. No more crying.
[2018-03-21 12:00] VITALS: BP 125/51
[2018-03-21] MEDS: CLONIDINE HCL 0.1 MG TABLET PO PRN (12:24)
--- NOTE | 2018-03-21 12:25 | NUR ---
PRN clonidine 0.1mg PO for moderate anxiety.
--- NOTE | 2018-03-21 12:27 | NUR ---
CIWA 17- Pt c/o moderate anxiety, nausea, fine tremors, sweats, chills, fatigue, anhedonia, tearful at times, dysphoria and headache.
--- NOTE | 2018-03-21 13:30 | NUR ---
Reassess Clonidine- Pt reports anxiety improved.
--- NOTE | 2018-03-21 14:14 | NUR ---
PRN IBUPROFEN 600 MG PO FOR HEADACHE #8/10
--- NOTE | 2018-03-21 15:15 | NUR ---
Reassess Ibuprofen- Pt reports headache now #4/. Medication effective.
[2018-03-21 16:00] VITALS: BP 99/63
--- NOTE | 2018-03-21 16:30 | NUR ---
MARIVEL 14- Pt c/o anxiety, nausea at times, sweats, chills, fatigue, fine tremors. Affect; anhedonia, tearful at times, dysphoria and headache. Pt spoke to this afternoon and feels hopeful about her situation.
--- NOTE | 2018-03-21 18:35 | NUR ---
End of shift Pt admitted for medically supervised withdrawal of ETOH and Benzo. Last CIWA 14 at 1600. Pt on 3 day Valium taper. Pt affect is guarded, flat , anhedonia, dysphoria, and depressed mood. She has been very tearful, crying at times and increased emotional volatility. Pt withdrawal symptoms include vomiting, nausea, sweats, chills, malaise, fine tremors poor appetite, sweats, and moist skin. PRN given today; Ibuprofen, Zofran, Clonidine. Encouraged Pt to attend group therapy sessions to identify positive coping skills to maintain sobriety. She was able to participate in one group therapy session. PO fluids 1500, voids x5, no BM. Fall and Seizure Precautions. Bed in lowest position. Side rails up x2. Call light functioning and within reach. All needs attended and met. Will continue to monitor for withdrawal symptoms.
--- NOTE | 2018-03-21 18:54 | NUR ---
PRN Zofran 4 mg SL PO for nausea. Pt reported after eating dinner and smoking her nausea returned.
--- NOTE | 2018-03-21 19:15 | NUR ---
PRN Zofran SL reassessment Px states that she is still nauseated and ask for Zofran IM.
--- NOTE | 2018-03-21 19:15 | NUR ---
Start of Shift Note Received a 37 y/o female px, admitted for medically supervised withdrawal from ETOH and Xanax. Px was placed on 3 day Valium taper, started 03/20/2018. Px is tolerating it. Last CIWA reported by AM shift nurse is 14. During the rounds at 1915, px is awake inside her room, sitting on the edge of the bed. Px appears anxious and depressed. She is disheveled. Drinks noted on top of the bed side table. Px states that her anxiety is 5/10, and complains of H/A of 7/10, and nausea. Mild bilateral hand tremors noted on extended arms. Bed on lowest position, side rails up 2x and call light within reach. Well continue to monitor.
--- NOTE | 2018-03-21 19:41 | NUR ---
PRN Tylenol and Zofran IM Px received Tylenol 650 mg PO for H/A of 710 and Zofran 4 mg IM for intermittent nausea. will continue to monitor
[2018-03-21 20:00] VITALS: BP 111/71
--- NOTE | 2018-03-21 20:00 | NUR ---
CIWA 17 Upon assessment, Px appears anxious and depressed. Px states that her anxiety is 5/10, and complains of H/A of 7/10, and nausea. Mild bilateral hand tremors noted on extended arms. will continue to monitor
--- NOTE | 2018-03-21 20:15 | NUR ---
PRN Zofran IM reassessment Px states that her nausea improved well.
[2018-03-21] MEDS: diphenhydrAMINE 50 MG CAPSULE PO PRN (20:32)
--- NOTE | 2018-03-21 20:32 | NUR ---
PRN Benadryl Px received Benadryl 50 mg PO for insomnia. will continue to monitor
--- NOTE | 2018-03-21 20:41 | NUR ---
PRN Tylenol reassessment Px states that her H/A is still at 6-7/10. will continue to monitor
--- NOTE | 2018-03-21 21:32 | NUR ---
HAMIDA Whittaker reassessment Px is still awake at this moment. She is asking for something else to help her sleep tonight.
--- NOTE | 2018-03-21 21:55 | NUR ---
PRN Motrin and Vistaril Px received Motrin 600 mg PO for H/A and Vistaril 25 mg PO for anxiety. will continue to monitor
--- NOTE | 2018-03-21 23:00 | NUR ---
PRN Motrin and Vistaril reassessment Px is about to sleep this time. She states that her H/A improved to 4/10. will continue to monitor
[2018-03-22] VITALS: BP 110/73
--- NOTE | 2018-03-22 | NUR ---
CIWA deferred CIWA deferred due to the px is asleep, to assess if the px is awake per doctor's order. will continue to monitor
[2018-03-22 04:00] VITALS: BP 114/71
--- NOTE | 2018-03-22 04:00 | NUR ---
CIWA deferred CIWA deferred due to the px is asleep, to assess if the px is awake per doctor's order. will continue to monitor
--- NOTE | 2018-03-22 07:05 | NUR ---
End of Shift Note During the shift at 1940, isaac received Tylenol 650 mg PO, it was not effective. At 1941, she received Zofran 4 mg IM for nausea, it was effective. At 2031, she received Benadryl 50 mg PO for insomnia, she is still awake after an hour. At 2154, she got Motrin 600 mg PO for H/A and Vistaril 50 mg PO, they were effective. Oral intake of 1000 ml, voided 3x, No BM. Isaac slept for 6.5 hours. Last CIWA 17 at 1999. Bed on lowest position, side rails up 2x and call light within reach. Well continue to monitor. Px was endorsed to AM shift nurse.
--- NOTE | 2018-03-22 07:35 | NUR ---
Start of shift Pt admitted for medically supervised withdrawal of ETOH and Benzo. Last CIWA 17 at 1999. Pt affect is guarded, flat , anhedonia, dysphoria, and depressed mood. She Is awake in bed c/o moderate anxiety, very tearful, and emotional. Pt presents with sweats, chills, malaise, fine tremors, and poor appetite. Pt slept 6.5 hours. Room is cluttered with wrappers, empty water bottles, clothes and used linens. Encouraged Pt to attend group therapy sessions to identify positive coping skills to maintain sobriety. Fall and Seizure Precautions. Bed in lowest position. Side rails up x2. Call light functioning and within reach. All needs attended and met. Will continue to monitor for withdrawal symptoms.
[2018-03-22 08:02] VITALS: BP 117/68
--- NOTE | 2018-03-22 08:05 | NUR ---
TATIWA 13- Pt c/o nausea moderate anxiety, chills, sweats, headache, fine tremors of hands bilaterally, generalized body aches. Her affect is flat, anhedonia and depressed mood.
[2018-03-22] MEDS: FOLIC ACID 1 MG TABLET PO SCH (08:06)
[2018-03-22] MEDS: MULTIVITAMINS,THERAPEUTIC TABLET PO SCH (08:06)
[2018-03-22] MEDS: DIAZEPAM 5 MG TABLET PO SCH ×2 (08:06→20:13)
[2018-03-22] MEDS: THIAMINE HCL 100 MG TABLET PO SCH (08:07)
[2018-03-22] MEDS: ONDANSETRON ODT 4 MG TAB.RAPDIS SL PRN ×2 (08:07→20:13)
[2018-03-22] MEDS: TOPIRAMATE 25 MG TABLET PO SCH (08:07)
[2018-03-22] MEDS: CLONIDINE HCL 0.1 MG TABLET PO PRN (08:07)
[2018-03-22] MEDS: ESCITALOPRAM OXALATE 10 MG TABLET PO SCH (08:07)
--- NOTE | 2018-03-22 08:10 | NUR ---
PRN ZOFRAN 4 MG SL FOR NAUSEA PRN CLONIDINE 0.1 MG PO FOR MODERATE ANXIETY. PT TEARFUL AND HAS WORRIED FACIAL EXPRESSIONS.
[2018-03-22] MEDS: IBUPROFEN 600 MG TABLET PO PRN ×2 (08:15→16:07)
--- NOTE | 2018-03-22 08:16 | NUR ---
PRN Ibuprofen 600 mg PO for headache #7/10 and tooth pain #5/10
[2018-03-22 08:30] LABS: CREATININE 0.6 mg/dL (0.6-1.3); POTASSIUM 3.2 mmol/L (3.5-5.1)
[2018-03-22 08:46] LABS: THYROID STIMULATING HORMONE 1.644 mIU/mL (0.358-3.740)
--- NOTE | 2018-03-22 09:20 | NUR ---
Reassess Zofran- Pt reports her nausea resolved. She was able to eat 50% of her breakfast. Reassess Clonidine- Pt reports anxiety is still present, medication minimally effective. Reassess Ibuprofen- Pt reports headache now #5/10 and tooth pain #1-2/10. Medication effective.
[2018-03-22] MEDS: HYDROXYZINE PAMOATE 25 MG CAPSULE PO PRN ×2 (10:24→12:43)
--- NOTE | 2018-03-22 10:25 | NUR ---
PRN Vistaril 25 mg PO for anxiety. Pt emotional, tearful, pacing room and halls.
--- NOTE | 2018-03-22 11:25 | NUR ---
Reassess Vistaril- Pt reports she still is anxious, medication minimally effective.
[2018-03-22 12:00] VITALS: BP 119/74
--- NOTE | 2018-03-22 12:02 | NUR ---
CIWA 13- Pt presents with anxiety, nausea fatigue, difficulty concentrating, emotional and tearful, chills, sweats, headache, and fine tremors of hands bilaterally.
[2018-03-22] MEDS: ACETAMINOPHEN 325 MG TABLET PO PRN ×2 (12:43→23:01)
--- NOTE | 2018-03-22 12:44 | NUR ---
PRN Tylenol 650 mg PO for headache #5/10 PRN Vistaril 25 mg PO for anxiety. Addendum: 03/22/18 at 1302 by Sharon Siu RN Did not give Vistaril 25 mg- dose too soon for administration
--- NOTE | 2018-03-22 13:45 | NUR ---
Reassess Tylenol- Pt reports headache pain lower #2-3/10.
[2018-03-22] MEDS ORDERED: POTASSIUM CHLORIDE 20 MEQ TAB.PRT.SR PO ONE (15:00)
[2018-03-22] MEDS: DOCOSANOL 2 GM CREAM TP SCH ×3 (15:24→20:23)
--- NOTE | 2018-03-22 16:07 | NUR ---
PRN Ibuprofen 600 mg PO for tooth pain #7/10 and headache #4/10.
[2018-03-22 16:48] VITALS: BP 125/59
--- NOTE | 2018-03-22 17:00 | NUR ---
Reassess Tylenol- Pt reports tooth pain now #3/10, headache #3/10.
--- NOTE | 2018-03-22 18:49 | NUR ---
End of shift Pt admitted for medically supervised withdrawal of ETOH and Benzo. Last CIWA 13 at 1600. Pt on 3 day Valium taper. Pt affect remains flat, tearful emotional, anhedonia, dysphoria, and depressed mood. Pt continues to have headaches, nausea, moderate anxiety, sweats, malaise, fine tremors, and poor appetite. PRN given today; Vistaril, Clonidine, Ibuprofen, Tylenol. Encouraged Pt to attend group therapy sessions to identify positive coping skills to maintain sobriety. Pt went to both group therapy sessions today. PO fluids 2750 ml, voids x5, BM x1. Fall and Seizure Precautions. Bed in lowest position. Side rails up x2. Call light functioning and within reach. All needs attended and met. Will continue to monitor for withdrawal symptoms.
--- NOTE | 2018-03-22 19:30 | NUR ---
START OF SHIFT Pt is a 37 y/o female admitted for ETOH and Benzo withdrawal. Last CIWA 13 at 1600. Pt continues on 3 day Valium taper. Per day shift,Pt was given PRN Vistaril, Clonidine, Ibuprofen and Tylenol. Pt has been compliant with medications and treatment plan, attending groups. Pt received in bed,A/A/O X 4.Pt c/o feeling anxious with intermittent hot and cold sweats and having nausea; appears worried and guarded.Emotional support provided,encouraged to verbalize needs and concerns.All safety measures are in place.Bed in lowest position. Side rails up x2. Call light is within reach. All needs attended and met. Will continue to monitor.
[2018-03-22 20:00] VITALS: BP 111/66
--- NOTE | 2018-03-22 20:13 | NUR ---
PRN ZOFRAN GIVEN ORDERED FOR C/O NAUSEA.NO VOMITING NOTED.
--- NOTE | 2018-03-22 20:26 | NUR ---
PRN TRAZODONE 50 MG PO GIVEN FOR INSOMNIA.
[2018-03-22] MEDS ORDERED: TRAZODONE 50 MG TABLET PO ONE (21:00)
--- NOTE | 2018-03-22 21:10 | NUR ---
PRN ZOFRAN IS EFFECTIVE.NAUSEA RELIEVED.
--- NOTE | 2018-03-22 21:26 | NUR ---
PRN TRAZODONE IS NOT EFFECTIVE. PT ENCOURAGED RELAXATION TECHNIQUES TO HELP SLEEP.WILL MONITOR.
[2018-03-22] MEDS: diphenhydrAMINE 50 MG CAPSULE PO PRN (23:01)
--- NOTE | 2018-03-22 23:01 | NUR ---
PRN MED Pt is still awake,unable to sleep.PRN Benadryl 5o mg po given for insomnia; will monitor.
--- NOTE | 2018-03-23 | NUR ---
PRN F/U; CIWA. Pt is calm and resting in bed with eyes closed, no s/s of distress noted. CIWA deferred due to Pt being asleep; v/s refused; will continue to monitor.
--- NOTE | 2018-03-23 04:00 | NUR ---
CIWA. Pt is calm and resting in bed with eyes closed, no s/s of distress noted. CIWA deferred due to Pt being asleep; v/s refused; will continue to monitor.
[2018-03-23] MEDS: DOCOSANOL 2 GM CREAM TP SCH ×5 (06:43→20:27)
--- NOTE | 2018-03-23 06:48 | NUR ---
END OF SHIFT Pt is a 37 y/o female admitted for ETOH and Benzo withdrawal. Last CIWA 13 at 1600. Pt has completed Valium taper. Pt was given PRN zofran, Trazodone, Benadryl and Tylenol and were effective. Pt has been compliant with medications . Pt is A/A/O X 4.Pt slept 6 hours,fluid intake was 750 mls,voided x 2, BM x 1. All safety measures are in place.Bed in lowest position. Side rails up x2. Call light is within reach. All needs attended and met. Will continue to monitor. Addendum: 03/23/18 at 0711 by MAYRA MARTELL RN LAST CIWA WAS 10 AT 1999.
--- NOTE | 2018-03-23 07:30 | NUR ---
Start Of Shift Patient is a 37 yr old female who was admitted to [facility] on 03/19/18 for a medically supervised withdrawal from ETOH ( Vodka) and Benzodiazepines ( Xanax), she has completed a 3 day Valium taper . PRN medications given on PM shift: Zofran 4mg SL, Tylenol, Benadryl and Trazodone, she slept for 6 hours and last CIWA was 10. Currently she is awake in her room and complains of headache, toothache and anxiety, will bring PRN medications, call light within reach, continue MD plan of care and offer support and encouragement as needed.
[2018-03-23] MEDS: ACETAMINOPHEN 325 MG TABLET PO PRN ×2 (07:40→13:47)
--- NOTE | 2018-03-23 07:40 | NUR ---
PRN Motrin and Tylenol given for headache and toothache 11/30 Vistaril and Clonidine given for increased anxiety Zofran 4mg SL given for Nausea will reassess
--- NOTE | 2018-03-23 07:40 | NUR ---
CIWA 15 Patient's withdrawal symptoms present as increased anxiety, fine hand tremors, headache, toothache, decreased appetite , nausea and restlessness. PRN Vistaril, Clonidine, Motrin, Tylenol and Zofran given
[2018-03-23] MEDS: ONDANSETRON ODT 4 MG TAB.RAPDIS SL PRN ×2 (07:41→13:47)
[2018-03-23] MEDS: CLONIDINE HCL 0.1 MG TABLET PO PRN ×2 (07:41→13:47)
[2018-03-23] MEDS: ESCITALOPRAM OXALATE 10 MG TABLET PO SCH (07:41)
[2018-03-23] MEDS: FOLIC ACID 1 MG TABLET PO SCH (07:42)
[2018-03-23] MEDS: TOPIRAMATE 25 MG TABLET PO SCH (07:42)
[2018-03-23] MEDS: THIAMINE HCL 100 MG TABLET PO SCH (07:42)
[2018-03-23] MEDS: HYDROXYZINE PAMOATE 25 MG CAPSULE PO PRN ×3 (07:42→20:13)
[2018-03-23] MEDS: IBUPROFEN 600 MG TABLET PO PRN ×3 (07:42→20:12)
[2018-03-23] MEDS: MULTIVITAMINS,THERAPEUTIC TABLET PO SCH (07:42)
[2018-03-23 08:00] VITALS: BP 107/65
[2018-03-23 08:24] LABS: BILIRUBIN,TOTAL 0.6 mg/dL (0.2-1.0); CREATININE 0.6 mg/dL (0.6-1.3); POTASSIUM 3.7 mmol/L (3.5-5.1); TOTAL PROTEIN, SERUM 6.4 g/dL (6.4-8.2)
--- NOTE | 2018-03-23 08:40 | NUR ---
PRN Reassess Medications effective, patient took a shower and states her anxiety has decreased. Toothache and headache reduced to 3/10 Nausea has ceased
[2018-03-23 12:00] VITALS: BP 138/66
--- NOTE | 2018-03-23 12:00 | NUR ---
CIWA 15 Patient's withdrawal symptoms present as increased anxiety, fine hand tremors, headache, toothache, decreased appetite , nausea and restlessness.
--- NOTE | 2018-03-23 13:47 | NUR ---
PRN Motrin and Tylenol given for headache and toothache 5/10 Vistaril and Clonidine given for increased anxiety Zofran 4mg SL given for Nausea will reassess
--- NOTE | 2018-03-23 14:47 | NUR ---
PRN Reassess Medications effective, patient states her anxiety has decreased. Toothache and headache reduced to 2/10 Nausea has ceased
[2018-03-23] MEDS ORDERED: CLON0.1T14 PO (14:53)
[2018-03-23] MEDS ORDERED: ESCI10TA PO (14:53)
[2018-03-23] MEDS ORDERED: TOPI25TA PO (14:53)
[2018-03-23] MEDS ORDERED: HYDR-3895 PO (14:53)
[2018-03-23] MEDS ORDERED: QUET25TA PO (14:53)
[2018-03-23 16:00] VITALS: BP 101/63
--- NOTE | 2018-03-23 16:22 | NUR ---
CILA 11 Patient's withdrawal symptoms present as increased anxiety, fine hand tremors, headache, toothache, decreased appetite , nausea and restlessness.
--- NOTE | 2018-03-23 18:54 | NUR ---
End Of Shift Patient is a 37 yr old female who was admitted to [facility] on 03/19/18 for a medically supervised withdrawal from ETOH ( Vodka) and Benzodiazepines ( Xanax), she has completed a 3 day Valium taper. PRN medications given on this shift: Zofran 4mg SL x2, Clonidine 0.1mg Po x2, Vistaril 25mg PO x2, Motrin 600mg PO x2, Tylenol 650mg PO x2 .She had a fluid intake of 2500 ML,5 Voids and 1 BM, her last CIWA was 11@ 1600. Her withdrawal symptoms have presented as nausea, gross hand tremors, decreased appetite, increased anxiety and lethargy. She has been teary at times today and quite emotional .She has attended all groups and is interacting with her peers. She will be discharged tomorrow to [facility] . Continue MD plan of care and offer support and encouragement as needed. Endorsed to hourly shift manager nurse.
--- NOTE | 2018-03-23 19:30 | NUR ---
START OF SHIFT Pt is a 37 y/o female admitted for ETOH and Benzo withdrawal. Last CIWA 11 at 1600. Pt has completed Valium taper. Pt was given PRN zofran x 2, Clonidine x 2,Vistaril x 2, Tylenol x 2 and motrin x 2 and were effective. Pt has been compliant with medications . Pt is A/A/O X 4.Received in room, c/o feeling anxious d/t being discharged tomorrow,also c/o toothache,requesting to get her medications early. All safety measures are in place.Bed in lowest position. Side rails up x2. Call light is within reach. All needs attended and met. Will continue to monitor.
[2018-03-23 20:00] VITALS: BP 112/65
--- NOTE | 2018-03-23 20:00 | NUR ---
CIWA=10, m/b anxiety,restlessness and generalized aches and pain.
--- NOTE | 2018-03-23 20:13 | NUR ---
PRN MEDS PRN Motrin 600 mg po given for toothache 11/30; and Vistaril 25 mg po given for anxiety; will continue tp monitor.
[2018-03-23] MEDS ORDERED: QUETIAPINE FUMARATE 25 MG TABLET PO SCH (21:00)
--- NOTE | 2018-03-23 21:13 | NUR ---
PRN F/U ANXIETY DECREASED,TOOTHACHE RELIEVED.WILL CONTINUE TO MONITOR.
[2018-03-23] MEDS: diphenhydrAMINE 50 MG CAPSULE PO PRN (23:02)
--- NOTE | 2018-03-23 23:03 | NUR ---
PRN BENADRYL 50 MG PO GIVEN FOR C/O INSOMNIA.WILL MONITOR.
--- NOTE | 2018-03-24 00:03 | NUR ---
CIWA / PRN F/U Pt is fast asleep,breathing is even and non labored,no s/s of distress noted, ciwa deferred , v/s refused.
[2018-03-24 05:07] LABS: TRIIODOTHYRONINE, FREE 3.6 pg/mL (2.0-4.4)
[2018-03-24] MEDS: DOCOSANOL 2 GM CREAM TP SCH ×2 (06:37→09:23)
--- NOTE | 2018-03-24 06:37 | NUR ---
END OF SHIFT Pt is a 37 y/o female admitted for ETOH and Benzo withdrawal. Last CIWA 10 at 1999. Pt has completed Valium taper and is scheduled for discharge today. Pt was given PRN Motrin, Vistaril and Benadryl and were effective. Pt has been compliant with medications . Pt is A/A/O X 4.Pt slept 8 hours,fluid intake was 355 mls,voided x 1, BM x 1. All safety measures are in place.Bed in lowest position. Side rails up x2. Call light is within reach. All needs attended and met. Will continue to monitor.
[2018-03-24 08:00] VITALS: BP 115/58
--- NOTE | 2018-03-24 08:20 | NUR ---
Start Of Shift Patient is a 37 yr old female who was admitted to [facility] on 03/19/18 for a medically supervised withdrawal from ETOH ( Vodka) and Benzodiazepines ( Xanax), she has completed a 3 day Valium taper and will be discharged this AM to " [facility] ". PRN medications given on PM shift:Benadryl, Motrin and Vistaril, she slept for 8 hours and last CIWA was 10. continue MD plan of care and offer support and encouragement as needed.
[2018-03-24] MEDS: ESCITALOPRAM OXALATE 10 MG TABLET PO SCH (09:22)
[2018-03-24] MEDS: THIAMINE HCL 100 MG TABLET PO SCH (09:22)
[2018-03-24] MEDS: IBUPROFEN 600 MG TABLET PO PRN (09:22)
[2018-03-24] MEDS: TOPIRAMATE 25 MG TABLET PO SCH (09:22)
[2018-03-24] MEDS: MULTIVITAMINS,THERAPEUTIC TABLET PO SCH (09:22)
[2018-03-24] MEDS: ACETAMINOPHEN 325 MG TABLET PO PRN (09:22)
[2018-03-24] MEDS: FOLIC ACID 1 MG TABLET PO SCH (09:22)
--- NOTE | 2018-03-24 09:22 | NUR ---
PRN Motrin 600mg PO and Tylenol 650 mg PO given for toothache 5/10 Vistaril and clonidine given for anxiety/tremors Zofran 4mg SL given for nausea
[2018-03-24 09:23] VITALS: BP 110/60
[2018-03-24] MEDS: ONDANSETRON ODT 4 MG TAB.RAPDIS SL PRN (09:23)
[2018-03-24] MEDS: CLONIDINE HCL 0.1 MG TABLET PO PRN (09:23)
[2018-03-24] MEDS: HYDROXYZINE PAMOATE 25 MG CAPSULE PO PRN (09:23)
--- NOTE | 2018-03-24 09:41 | NUR ---
Discharge Note: Patient signed and dated all DC paperwork, all personal belongings and prescriptions placed in zip tied bag. Pt states no SI/HI, Last BM this AM, VS stable. Patient ambulated off the unit and was picked up by [facility] " [facility] " for transport to " [facility] ".
== END 2018-03-24 09:48 | disposition other institution (70) | DRG 895 ==
LOC: SRC 20:31
PROVIDERS: ADMIT Family Medicine Addiction Medicine; ATTEND Family Medicine Addiction Medicine
PROC: HZ2ZZZZ Detoxification Services for Substance Abuse Treatment (ICD-10-PCS; principal; 2018-03-19)
PROC: HZ31ZZZ Individual Counseling for Substance Abuse Treatment, Behavioral (ICD-10-PCS; 2018-03-20)
PROC: HZ41ZZZ Group Counseling for Substance Abuse Treatment, Behavioral (ICD-10-PCS; 2018-03-21)
PROC: HZ59ZZZ Individual Psychotherapy for Substance Abuse Treatment, Supportive (ICD-10-PCS; 2018-03-22)
DX: F10.230 Alcohol dependence with withdrawal, uncomplicated (principal); F33.2 Major depressive disorder, recurrent severe without psychotic features; F13.230 Sedative, hypnotic or anxiolytic dependence with withdrawal, uncomplicated; Y90.9 Presence of alcohol in blood, level not specified; E87.6 Hypokalemia; E83.42 Hypomagnesemia; J30.9 Allergic rhinitis, unspecified; Z72.0 Tobacco use; G47.00 Insomnia, unspecified; Z81.8 Family history of other mental and behavioral disorders; Z79.899 Other long term (current) drug therapy; E88.09 Other disorders of plasma-protein metabolism, not elsewhere classified; E83.51 Hypocalcemia; E89.0 Postprocedural hypothyroidism
CPT/HCPCS: 36415; 70030-TC; 80307; 80346; 83690; 83735; 84443; 84480; 84481; 84703; 85025; 86592; 86705; 86803; 87340; 87806; G0480; J2405; Q0162; Q0163